=== PATIENT | female | born 1945 | race Caucasian/White ===

== ENCOUNTER 2016-05-01 08:44 | Emergency (ER) | payer OTHER ==
[~2016-05-01] VITALS: Ht 154.9 cm; Wt 50.0 kg
[~2016-05-01 08:44] MED LIST: ALLERGY RELIEF10 M1 PO; CARAFATE 1GM1 G PO; CELEXA 20MG20 MG/TAB PO; DIPHENHYDRAMINE25 MG PO; ELAVIL100 MG PO; FLONASE NASAL S16 GM NS; FLONASE0.05 MG/AC NS; FLOVENT 220MCG7.9 GM IH; FLOVENT DI250 MCG/Ac IH; IBU800 M1 PO; MAXZIDE-25 (1 UDTAB PO; METFORMIN500 MG PO; MULTIPLE VITAMI1 CAP PO; NEURONTIN100 MG/CAP PO; NYSTATIN AND TR1 CRE TP; PANTOPRAZOLE40 MG PO; PLAQUENIL 200M200 MG PO; PLAQUENIL PO; RANITIDINE300 MG PO; TYLENOL 325MG325 MG PO; [UNRECOGNIZED DRUG - OTHER] PO
[2016-05-01 08:47] VITALS: BP 160/87; TEMP 97.5
[2016-05-01 10:00] LABS: PH 5 (5-8); SQUAMOUS EPITHELIAL None Seen /hpf; URINE APPEARANCE Cloudy; URINE BACTERIA Rare /hpf; URINE BILIRUBIN Negative (NEGATIVE); URINE BLOOD 3+ (NEGATIVE); URINE COLOR Yellow; URINE GLUCOSE Negative (NEGATIVE); URINE KETONE Negative (NEGATIVE); URINE RBC >50 /hpf; URINE UROBILINOGEN Negative (NEGATIVE); URINE WBC >50 /hpf
[2016-05-01] MEDS ORDERED: CIPRO 250MG TA250 MG PO (10:12)
[2016-05-01] MEDS ORDERED: PYRIDIUM 100MG100 MG PO (10:12)
[2016-05-01 10:15] VITALS: PULSE 81
== END 2016-05-01 10:15 | disposition home or self-care (01) ==
LOC: COL.ER 08:44
PROVIDERS: Physician Assistant
DX: N39.0 Urinary tract infection, site not specified (principal); B96.20 Unspecified Escherichia coli [E. coli] as the cause of diseases classified elsewhere; M32.9 Systemic lupus erythematosus, unspecified; R31.0 Gross hematuria

== ENCOUNTER 2018-04-11 12:57 | Emergency (ER) | payer OTHER ==
[~2018-04-11] VITALS: Ht 154.9 cm; Wt 52.3 kg
[~2018-04-11 12:57] MED LIST changes: +CIPRO 250MG TA250 MG PO; +PYRIDIUM 100MG100 MG PO
[2018-04-11 13:00] VITALS: BP 149/80; TEMP 98.1
[2018-04-11 13:43] LABS: BASO # 0.1 (0.0-0.2); BASO % 1.1 % (0.0-2.0); EOS # 0.3 (0.0-0.7); GRAN # 2.7 (1.4-6.5); GRAN % 48.8 % (42.2-75.2); HEMATOCRIT 37.9 % (37.0-47.0); HEMOGLOBIN 12.7 g/dl (12.5-16.0); LYMPH # 2.1 (1.2-3.4); LYMPH % 37.6 % (20.0-51.0); MEAN CELL VOLUME 92 fl (80.0-100.0); MEAN CORPUSCULAR HEMOGLOBIN 31 pg (27.0-31.0); MEAN CORPUSCULAR HGB CONC 34 g/dl (33.0-37.0); MEAN PLATELET VOLUME 10.2 fl (7.4-10.4); MONO # 0.4 (0.1-0.6); MONO % 7.3 % (1.7-9.3); PLATELET COUNT 196 K/mm3 (130-400); RED BLOOD COUNT 4.12 M/mm3 (4.10-5.30); REDCELL DISTRIBUTION WIDTH-CV 13.6 % (11.5-14.5)
[2018-04-11 13:56] LABS: COLLECTION METHOD CLEAN CATCH
[2018-04-11 13:59] LABS: ALBUMIN 3.5 gm/dL (3.5-5.0); BILIRUBIN,TOTAL 0.4 mg/dL (0.0-1.0); C-REACTIVE PROTEIN 1.8 mg/dL (0.0-0.9); CALCIUM 9.1 mg/dL (8.4-10.2); CREATININE, serum 0.61 mg/dL (0.52-1.25); POTASSIUM 3.1 mmol/L (3.4-5.0); TOTAL PROTEIN 6.6 gm/dL (6.4-8.2)
[2018-04-11 14:04] LABS: PH 8 (5-8); SQUAMOUS EPITHELIAL None Seen /hpf; URINE APPEARANCE Clear; URINE BACTERIA None Seen /hpf; URINE BILIRUBIN Negative (NEGATIVE); URINE BLOOD Negative (NEGATIVE); URINE COLOR Yellow; URINE GLUCOSE Negative (NEGATIVE); URINE KETONE Negative (NEGATIVE); URINE LEUKOCYTE ESTERASE Trace (NEGATIVE); URINE NITRATE Negative (NEGATIVE); URINE PROTEIN(semi-quant) Negative (NEGATIVE); URINE RBC 0-2 /hpf; URINE UROBILINOGEN Negative (NEGATIVE)
[2018-04-11] MEDS ORDERED: CEFTIN 250250 MG/TAB PO (14:31)
[2018-04-11] MEDS ORDERED: NORCO 325 MG-7.1 TAB PO (14:31)
[2018-04-11 14:55] VITALS: PULSE 80
== END 2018-04-11 14:55 | disposition home or self-care (01) ==
LOC: COL.ER 12:57
PROVIDERS: Physician Assistant
DX: R10.9 Unspecified abdominal pain (principal); I10 Essential (primary) hypertension; J45.909 Unspecified asthma, uncomplicated; F17.210 Nicotine dependence, cigarettes, uncomplicated; Z90.49 Acquired absence of other specified parts of digestive tract; Z90.710 Acquired absence of both cervix and uterus
CPT/HCPCS: J7030

== ENCOUNTER 2019-03-07 05:54 | Emergency (ER) | payer MEDICARE, MEDICAID ==
[~2019-03-07] VITALS: Ht 154.9 cm; Wt 50.0 kg
[~2019-03-07 05:54] MED LIST changes: +CEFTIN 250250 MG/TAB PO; +NORCO 325 MG-7.1 TAB PO
[2019-03-07 05:58] VITALS: BP 157/73
[2019-03-07 07:44] LABS: BASO # 0.1 (0.0-0.2); BASO % 1.4 % (0.0-2.0); EOS # 0.8 (0.0-0.7); EOS % 14.4 % (0-4.0); GRAN # 2.2 (1.4-6.5); GRAN % 37.6 % (42.2-75.2); HEMATOCRIT 37.8 % (37.0-47.0); HEMOGLOBIN 12.4 g/dl (12.5-16.0); LYMPH # 2.2 (1.2-3.4); LYMPH % 37.2 % (20.0-51.0); MEAN CELL VOLUME 90 fl (80.0-100.0); MEAN CORPUSCULAR HEMOGLOBIN 30 pg (27.0-31.0); MEAN CORPUSCULAR HGB CONC 33 g/dl (33.0-37.0); MEAN PLATELET VOLUME 10.1 fl (7.4-10.4); MONO # 0.5 (0.1-0.6); MONO % 9.1 % (1.7-9.3); PLATELET COUNT 176 K/mm3 (130-400); REDCELL DISTRIBUTION WIDTH-CV 13.8 % (11.5-14.5)
[2019-03-07 07:53] LABS: ALBUMIN 3.8 gm/dL (3.5-5.0); BILIRUBIN,TOTAL 0.2 mg/dL (0.0-1.0); CALCIUM 9.1 mg/dL (8.4-10.2); CREATININE, serum 0.55 (0.52-1.25); POTASSIUM 3.3 mmol/L (3.4-5.0); TOTAL PROTEIN 7.3 gm/dL (6.4-8.2)
[2019-03-07 10:35] VITALS: PULSE 82; TEMP 97.5
== END 2019-03-07 10:35 | disposition home or self-care (01) ==
LOC: COL.ER 05:54
PROVIDERS: Emergency Medicine
DX: R51 Headache (principal); J45.909 Unspecified asthma, uncomplicated; M79.7 Fibromyalgia; F17.210 Nicotine dependence, cigarettes, uncomplicated; Z90.89 Acquired absence of other organs; Z79.51 Long term (current) use of inhaled steroids
CPT/HCPCS: J3010; Q9967

== ENCOUNTER → 2019-04-06 | Outpatient (CLI) | payer MEDICARE, MEDICAID | LOC: COL.VAS 12:45 | DX: J44.9 Chronic obstructive pulmonary disease, unspecified (principal); I08.0 Rheumatic disorders of both mitral and aortic valves ==

== ENCOUNTER 2019-06-02 10:51 | Emergency (ER) | payer MEDICARE, MEDICAID ==
[~2019-06-02] VITALS: Ht 154.9 cm; Wt 45.5 kg
[2019-06-02 11:01] VITALS: BP 157/72; TEMP 97.3
[2019-06-02 11:40] VITALS: PULSE 81
== END 2019-06-02 11:40 | disposition home or self-care (01) ==
LOC: COL.ER 10:51
DX: G89.29 Other chronic pain (principal); Z91.14 Patient's other noncompliance with medication regimen

== ENCOUNTER → 2019-06-02 | Outpatient (CLI) | payer MEDICARE, MEDICAID ==
[~2019-06-02] MED LIST changes: +ANTIVERT 25MG25 MG PO; +BREO ELLIPTA 21 EACH IH; +CALCIUM 600MG+D1 TAB PO; +COLESTID 1GM1 G PO; +DOXYCYCLINE 10100 MG PO; +FLONASEALLERGY NS; +HCTZ 25MG TAB25 MG PO; +INCRUSE EL62.5 MCG/A IH; +LEXAPRO20 MG PO; +LOMOTIL 0.025 M1 TAB PO; +MAG-OX 400400 MG/TAB PO; +MICRO-K EXTENCA8 MEQ PO; +MORPHINE 1515 MG/TAB PO; +PROAIR HFA0.09 MG/AC IH; +PROTONIX 40MG T40 MG PO; +SINGULAIR 110 MG/TAB PO; +TESSALON P100 MG/CAP PO; +XOPENEX 1.1.25 MG/3 IH
== END ==
LOC: COL.RAD 09:20
DX: Z01.812 Encounter for preprocedural laboratory examination (principal); K86.89 Other specified diseases of pancreas; N28.1 Cyst of kidney, acquired
CPT/HCPCS: Q9967

== ENCOUNTER → 2019-06-16 | Outpatient (CLI) | payer MEDICARE, MEDICAID | LOC: COL.RAD 11:58 | DX: K86.89 Other specified diseases of pancreas (principal) | CPT/HCPCS: A9585 ==

== ENCOUNTER → 2019-10-09 | Outpatient (CLI) | payer MEDICARE, MEDICAID | LOC: COL.RAD 13:45 | DX: Z01.812 Encounter for preprocedural laboratory examination (principal); K86.89 Other specified diseases of pancreas; I31.3 Pericardial effusion (noninflammatory); J90 Pleural effusion, not elsewhere classified; R16.1 Splenomegaly, not elsewhere classified | CPT/HCPCS: Q9967 ==

== ENCOUNTER → 2019-12-11 | Outpatient (CLI) | payer MEDICARE, MEDICAID | LOC: COL.RAD 14:56 | DX: T14.8XXA Other injury of unspecified body region, initial encounter (principal) ==

== ENCOUNTER → 2020-03-17 | Outpatient (CLI) | payer MEDICARE, MEDICAID | LOC: COL.VAS 13:05 | DX: I27.20 Pulmonary hypertension, unspecified (principal); I35.1 Nonrheumatic aortic (valve) insufficiency ==

== ENCOUNTER 2020-06-02 08:00 | Outpatient (CLI) | payer MEDICARE, MEDICAID ==
[~2020-06-02] VITALS: Ht 155 cm; Wt 49.0 kg
[2020-06-02 08:33] LABS: HEMATOCRIT 43.7 % (37.0-47.0); MEAN CELL VOLUME 87 fl (80.0-100.0); MEAN CORPUSCULAR HEMOGLOBIN 30 pg (27.0-31.0); MEAN CORPUSCULAR HGB CONC 34 g/dl (33.0-37.0); MEAN PLATELET VOLUME 9.5 fl (7.4-10.4); PLATELET COUNT 161 K/mm3 (130-400); RED BLOOD COUNT 5.05 M/mm3 (4.10-5.30); REDCELL DISTRIBUTION WIDTH-CV 13.2 % (11.5-14.5)
[2020-06-02 08:34] VITALS: BP 133/74; PULSE 91; TEMP 98.2
[2020-06-02 08:41] LABS: INR 1.1 (0.8-3.0); PROTHROMBIN TIME 12.3 SECONDS (9.7-12.8)
[2020-06-02 08:42] LABS: CALCIUM 9.7 mg/dL (8.4-10.2); CREATININE, serum 0.56 (0.52-1.25); POTASSIUM 3.3 mmol/L (3.4-5.0)
[2020-06-02] MEDS ORDERED: NORVASC 5MG5 MG/TAB PO (08:49)
[2020-06-02] MEDS ORDERED: SEROQUEL50 MG PO (08:49)
[2020-06-02] MEDS ORDERED: BREO ELLIPTA 21 EACH IH (08:52)
[2020-06-02] MEDS ORDERED: INCRUSE EL62.5 MCG/A IH (08:53)
[2020-06-02] MEDS ORDERED: BENTYL 10MG10 MG/CAP PO (08:54)
[2020-06-02] MEDS ORDERED: ONE-A-DAY ESSE1 EACH PO (08:55)
[2020-06-02] MEDS ORDERED: VITAMIN B COMPL1 SGL PO (08:55)
[2020-06-02] MEDS ORDERED: VITAMIN C500 MG PO (08:55)
[2020-06-02 09:45] VITALS: BP 123/78; PULSE 84
[2020-06-02 10:00] VITALS: BP 146/78; PULSE 75
[2020-06-02 10:15] VITALS: BP 151/78; PULSE 90
[2020-06-02 10:30] VITALS: BP 152/74; PULSE 78
[2020-06-02] MEDS ORDERED: ASPIRIN E.C. 8181 MG PO (10:44)
[2020-06-02 10:52] VITALS: BP 134/75; PULSE 82
--- NOTE | 2020-06-02 11:08 | NUR ---
Pt assisted out by wheelchair to sister's car with meds and personal belongings. She expressed understanding to DC instructions. Tolerated PO well. She was able to ambulate in room with cane prior to discharge. INT was DC'd with catheter intact, and bleeding controlled at site.
== END 2020-06-02 11:14 | disposition home or self-care (01) ==
LOC: COL.RAD 08:00
PROVIDERS: Internal Medicine Adult Congenital Heart Disease
DX: I08.3 Combined rheumatic disorders of mitral, aortic and tricuspid valves (principal); I70.0 Atherosclerosis of aorta
CPT/HCPCS: J2704

== ENCOUNTER → 2020-06-06 | Outpatient (CLI) | payer OTHER ==
[~2020-06-06] MED LIST changes: +ASPIRIN E.C. 8181 MG PO; +BENTYL 10MG10 MG/CAP PO; +NORVASC 5MG5 MG/TAB PO; +ONE-A-DAY ESSE1 EACH PO; +SEROQUEL50 MG PO; +VITAMIN B COMPL1 SGL PO; +VITAMIN C500 MG PO
== END ==
LOC: COL.RAD 12:11
DX: J32.9 Chronic sinusitis, unspecified (principal); Z98.890 Other specified postprocedural states

== ENCOUNTER 2020-06-19 11:01 | Inpatient (IN) | payer MEDICARE, MEDICAID ==
[~2020-06-19] VITALS: Ht 154.9 cm; Wt 50.0 kg
[2020-06-19 11:29] LABS: BASO # 0.1 (0.0-0.2); BASO % 1.4 % (0.0-2.0); EOS % 11.2 % (0-4.0); GRAN # 3.5 (1.4-6.5); GRAN % 40.8 % (42.2-75.2); HEMATOCRIT 41.3 % (37.0-47.0); HEMOGLOBIN 14.1 g/dl (12.5-16.0); LYMPH # 3.5 (1.2-3.4); LYMPH % 40.7 % (20.0-51.0); MEAN CELL VOLUME 90 fl (80.0-100.0); MEAN CORPUSCULAR HEMOGLOBIN 31 pg (27.0-31.0); MEAN CORPUSCULAR HGB CONC 34 g/dl (33.0-37.0); MEAN PLATELET VOLUME 10.1 fl (7.4-10.4); MONO # 0.5 (0.1-0.6); MONO % 5.8 % (1.7-9.3); PLATELET COUNT 148 K/mm3 (130-400); REDCELL DISTRIBUTION WIDTH-CV 13.3 % (11.5-14.5)
[2020-06-19 11:32] LABS: ALANINE AMINOTRANSFERASE 20 U/L (4-34); ALBUMIN 4.3 gm/dL (3.5-5.0); ALKALINE PHOSPHATASE 104 U/L (50-136); ANION GAP 7 mmol/L (7-16); AST,SGOT 34 U/L (15-37); BILIRUBIN,TOTAL 0.7 mg/dL (0.0-1.0); BLOOD UREA NITROGEN 9 mg/dL (7-17); CALCIUM 9.5 mg/dL (8.4-10.2); CARBON DIOXIDE 28 mmol/L (22-30); CHLORIDE 105 mmol/L (98-107); GLUCOSE 128 mg/dL (74-106); POTASSIUM 3.3 mmol/L (3.4-5.0); SODIUM 139 mmol/L (137-145); TOTAL PROTEIN 8.4 gm/dL (6.4-8.2)
[2020-06-19] MEDS ORDERED: CELEXA40 MG PO (11:40)
[2020-06-19] MEDS ORDERED: CLEOCIN HCL300 MG PO (11:41)
[2020-06-19 11:44] LABS: TROPONIN-I < 0.012 ng/mL (0.000-0.035)
--- NOTE | 2020-06-19 16:35 | NUR ---
PT UP TO MEDICAL FLOOR, REPORT RCVD FROM [facility].
[2020-06-19 17:06] LABS: ARTERIAL BLD GAS O2 SATURATION 96.5 % (92-100); ARTERIAL BLD GAS TCO2 CT 28.2; ARTERIAL BLOOD GAS BASE EXCESS 2.5 (-2-2); ARTERIAL BLOOD GAS HCO3 26.9 meq/L (22-26); ARTERIAL BLOOD GAS PCO2 41.1 mmHg (35-45); ARTERIAL BLOOD GAS PO2 84.7 mmHg (80-100); ARTERIAL BLOOD GAS pH 7.43 (7.35-7.45)
[2020-06-19 17:11] VITALS: BP 125/62; PULSE 92; TEMP 98.4
--- NOTE | 2020-06-19 17:28 | NUR ---
CALLED BY MED/FOLDER AND NOTCHER FOR ABG ORDERED IN ER AT 1530. ER RT NEVER NOTIFIED
[2020-06-19] MEDS ORDERED: REMERON 15M15 MG/TA1 PO (18:39)
[2020-06-19 19:08] VITALS: BP 150/78; PULSE 111; TEMP 97.5
--- NOTE | 2020-06-19 19:50 | NUR ---
REPORT GIVEN TO ALLISON OCAMPO. PT HAS HAD UNEVENTFUL EVENING ON THE MEDICAL FLOOR. NO OTHER CONCERNS.
--- NOTE | 2020-06-19 20:13 | NUR ---
Patient laying in bed and watching TV upon enter the room. Patient alert and oriented. Patient denies any chest pain, SOB/dyspnea, N/V, dizziness, diarrhea at this time. Patient currently on 3L via NC. Breathing even and unlabored. No s/s of respiratory distress noted. All scheduled meds given per JUN. Left AC IV site has no s/s of complications. Call light within reach. Patient denies any needs at this time. Will continue to monitor.
[2020-06-20] VITALS (7 sets, daily range): BP systolic 114–132; BP diastolic 51–68; PULSE 89–113; TEMP 97.6–98.4
--- NOTE | 2020-06-20 04:42 | NUR ---
Patient has been awake all night. Patient requested sleeping meds. Patient reports that she is taking Melatonin 30mg at home for sleeping. Called hospitalist XU Mukherjee for sleeping med. Order received to give 12 mg of Melatonin. PRN Melatonin give at 04:28 am. Call light within reach. Patient de nies further needs at this time.
--- NOTE | 2020-06-20 06:23 | NUR ---
PRN Morphine given at 06:13 am for back pain 4-5 out of 10. Call light within reach. Will give report to day shift nurse.
[2020-06-20 06:54] LABS: CALCIUM 9.8 mg/dL (8.4-10.2); CREATININE, serum 0.55 (0.52-1.25)
--- NOTE | 2020-06-20 07:00 | NUR ---
Report received from ALLISON Brothers. Pt in bed resting w ith [address], denies needs, will continue to monitor.
--- NOTE | 2020-06-20 08:30 | NUR ---
Assessment charted. Pt states she feels much better with pain all over sincetaking PRN Morphine PO but still has some chest pain that radiates up to neck. 02 at 4L NC. Haywood in room to see pt. INT to L A/C. Andrey proivded per pt request. Will continue to monitor.
[2020-06-20 08:36] LABS: INR 1.3 (0.8-3.0); PROTHROMBIN TIME 14.1 SECONDS (9.7-12.8)
--- NOTE | 2020-06-20 10:33 | NUR ---
Initial visit; Patient thanked Executive Kitchen Manager for offering prayer and God's blessings. Executive Kitchen Manager will follow up and keep patient in her prayers.
--- NOTE | 2020-06-20 14:49 | NUR ---
Plan to return home: SW met with patient and her sister in room. Patient reports that she resides locally. Patient reports that her PCP is Dr. Prajapati and she last had an appointment 2 weeks ago. Patient reports that she receives medications for [facility]. Patient reports that she uses a cane for mobility and has oygen at 3 liters from [facility]. Patinet reports that she does not have any other DME, Patient does not have any ADR but is interested in signing. Patient name EMR contact as Kaylin Roque . BLAYNE gave DPOA paperwork. Patient reports that she would like a casemanger to come back after 4 to do ppw. Educated patient if not later, in the morning. Patient has ppw and pen to fill out. Patient does not have any additional needs at this time. Will follow.
--- NOTE | 2020-06-20 18:01 | NUR ---
Pt up to bathroom for shower this afternoon, up to bathroom with diarrhea after constipation resolved, did refuse bowel regimen. Resting between disturbances, doing well, PRN pain meds given per request. Will give bedside shift report to nightshift nurse who will resume care.
--- NOTE | 2020-06-20 20:00 | NUR ---
Assessment complete. Patient ambulates independently to restroom to void; gait is steady. She complains of pain 7/10 "all over" but specifically as a headache; She states she takes morphine 2-3 times a day - Morphine order obtained for TID. She wears 4 liters 02 and appears dyspnic with activity. No edema is present, hand natural resources engineer are equal. Lung sounds are clear with very diminished bases. Bowels sounds are audible in all quadrants. LR at 30 ml/hr initiated into left a/c IV.
[2020-06-21] VITALS (13 sets, daily range): BP systolic 100–140; BP diastolic 47–84; PULSE 86–110; TEMP 97.3–98.4
--- NOTE | 2020-06-21 07:00 | NUR ---
bedside shift report received from ALLISON Tabares
[2020-06-21 07:04] LABS: HEMATOCRIT 38.6 % (37.0-47.0); HEMOGLOBIN 12.6 g/dl (12.5-16.0); MEAN CELL VOLUME 92 fl (80.0-100.0); MEAN CORPUSCULAR HEMOGLOBIN 30 pg (27.0-31.0); MEAN CORPUSCULAR HGB CONC 33 g/dl (33.0-37.0); MEAN PLATELET VOLUME 10.4 fl (7.4-10.4); PLATELET COUNT 138 K/mm3 (130-400); RED BLOOD COUNT 4.19 M/mm3 (4.10-5.30); REDCELL DISTRIBUTION WIDTH-CV 13.8 % (11.5-14.5)
[2020-06-21 07:18] LABS: CREATININE, serum 0.51 (0.52-1.25)
[2020-06-21 07:57] LABS: BAND 9 % (0-10); LYMPHOCYTE 5 % (20.0-51.0); NEUTROPHILS 84 % (42.0-75.2); PLATELET ESTIMATE NORMAL (NORMAL)
--- NOTE | 2020-06-21 08:00 | NUR ---
to endoscopy room for bronchoscopy,
--- NOTE | 2020-06-21 08:40 | NUR ---
returned per care from endoscopy clinic, ambulated from cart and into room and into bed, O2 on at 4L/NC, denies pain or needs,
--- NOTE | 2020-06-21 09:30 | NUR ---
Follow-up, Photo Engraver saw patient returning to her room and offered God's blessings this morning. Patient appeared happy to see Photo Engraver as well.
--- NOTE | 2020-06-21 09:53 | NUR ---
resting in bed, has had breakfast and tolerated well, denies needs at this time
--- NOTE | 2020-06-21 11:00 | NUR ---
ambulating in [facility] with physical therapy, Dr Chaves and care team was in to see patient,
--- NOTE | 2020-06-21 12:41 | NUR ---
c/o pain and medicated with MS 15mg po per her request
--- NOTE | 2020-06-21 13:30 | NUR ---
speech therapy in to work with patient
--- NOTE | 2020-06-21 14:58 | NUR ---
resting in bed
--- NOTE | 2020-06-21 15:58 | NUR ---
resting in bed, denies needs, student CAMPAIGN SPECIALIST in to assist with care
--- NOTE | 2020-06-21 16:45 | NUR ---
resting in bed and ready to rest
--- NOTE | 2020-06-21 17:01 | NUR ---
Curriculum Facilitator followed up with patient on DPOA- paperwork. SW assisted patient in completing the form in which patient wanted to designate her daughter, Chica. BLAYNE and Isiah, Quality Systems Engineer provided witness signature. SW provided original and copies to patient then placed copy on patient's chart.
--- NOTE | 2020-06-21 18:57 | NUR ---
bedside shift report given to ALLISON Brothers
--- NOTE | 2020-06-21 20:05 | NUR ---
Shift assessment completed and charted. Patient A/Ox4. Patient c/o pain to her feet and neck. Also c/o having bad headache. Patient denies SOB/dyspnea while at rest. Patient currently on 3L via AL. No acute respiratory distress noted at this time. PRN Morphine given for pain and headache. All scheduled meds given per JUN. Call light within reach. Patient denies any needs at this time.
[2020-06-22 20:00] VITALS: BP 139/66; PULSE 79; TEMP 98
[2020-06-23 00:21] VITALS: PULSE 75; TEMP 97.2
[2020-06-23 04:28] VITALS: PULSE 68; TEMP 97.2
[2020-06-23 07:08] LABS: BASO % 0.1 % (0.0-2.0); GRAN # 6.7 (1.4-6.5); GRAN % 82.6 % (42.2-75.2); HEMATOCRIT 41.1 % (37.0-47.0); HEMOGLOBIN 13.7 g/dl (12.5-16.0); LYMPH % 12.1 % (20.0-51.0); MEAN CELL VOLUME 91 fl (80.0-100.0); MEAN CORPUSCULAR HEMOGLOBIN 30 pg (27.0-31.0); MEAN CORPUSCULAR HGB CONC 33 g/dl (33.0-37.0); MEAN PLATELET VOLUME 10.6 fl (7.4-10.4); MONO # 0.4 (0.1-0.6); MONO % 4.3 % (1.7-9.3); PLATELET COUNT 143 K/mm3 (130-400); RED BLOOD COUNT 4.54 M/mm3 (4.10-5.30); REDCELL DISTRIBUTION WIDTH-CV 13.3 % (11.5-14.5)
[2020-06-23 07:26] LABS: CALCIUM 9.7 mg/dL (8.4-10.2); CREATININE, serum 0.59 (0.52-1.25); POTASSIUM 4.1 mmol/L (3.4-5.0)
[2020-06-23 08:28] VITALS: BP 138/70; PULSE 72; TEMP 98.4
[2020-06-23 08:41] VITALS: BP 121/57; PULSE 68
[2020-06-23] MEDS ORDERED: OMNICEF 300MG300 MG PO (08:56)
[2020-06-23] MEDS ORDERED: MUCINEX1200 MG PO (08:57)
--- NOTE | 2020-06-23 08:58 | NUR ---
(late entry 06/22) Upholstery Handler attended clinical rounds with the team. The patient is on oxygen at baseline. The discharge plan is to return home with her daughter when able.
[2020-06-23] MEDS ORDERED: FIRST-MOUTHWASH1 KIT PO (08:59)
[2020-06-23] MEDS ORDERED: PREDNISONE10 MG PO (09:01)
--- NOTE | 2020-06-23 10:29 | NUR ---
Agree with student nurses assessment of the patient. VSS O2 2L NC. Denies pain and discomfort. No further needs expressed from the patient. Call light within reach
--- NOTE | 2020-06-23 12:36 | NUR ---
Primary nurse was assisted with [phone] patient care by [employer] [facility] [facility] student Jocelyn Elena and [facility] [facility] instructor My Guerrero RN-BC.
[2020-06-23 14:55] LABS: CLOSTRIDIUM DIFF A/B NEG; CLOSTRIDIUM DIFF A/B INTERP No C.diff present
== END 2020-06-23 12:00 | disposition home or self-care (01) | DRG 194 ==
LOC: COL.ER 11:01 → MEDICAL 15:28
PROVIDERS: Internal Medicine Pulmonary Disease; Nurse Practitioner Primary Care; ADMIT Family Medicine
PROC: 0BCB8ZZ Extirpation of Matter from Left Lower Lobe Bronchus, Via Natural or Artificial Opening Endoscopic (ICD-10-PCS; 2020-06-21)
PROC: 0BC68ZZ Extirpation of Matter from Right Lower Lobe Bronchus, Via Natural or Artificial Opening Endoscopic (ICD-10-PCS; 2020-06-21)
PROC: 0DB28ZX Excision of Middle Esophagus, Via Natural or Artificial Opening Endoscopic, Diagnostic (ICD-10-PCS; 2020-06-21)
PROC: 0DB78ZX Excision of Stomach, Pylorus, Via Natural or Artificial Opening Endoscopic, Diagnostic (ICD-10-PCS; 2020-06-21)
PROC: 0BC18ZZ Extirpation of Matter from Trachea, Via Natural or Artificial Opening Endoscopic (ICD-10-PCS; principal; 2020-06-21 08:00)
DX: J18.9 Pneumonia, unspecified organism (principal); J96.11 Chronic respiratory failure with hypoxia; J44.0 Chronic obstructive pulmonary disease with (acute) lower respiratory infection; J44.1 Chronic obstructive pulmonary disease with (acute) exacerbation; K22.10 Ulcer of esophagus without bleeding; J98.19 Other pulmonary collapse; J98.11 Atelectasis; Z20.822 Contact with and (suspected) exposure to COVID-19; E87.6 Hypokalemia; I10 Essential (primary) hypertension; M34.9 Systemic sclerosis, unspecified; K22.8 Other specified diseases of esophagus; I27.20 Pulmonary hypertension, unspecified; I73.00 Raynaud's syndrome without gangrene; M32.9 Systemic lupus erythematosus, unspecified; M79.7 Fibromyalgia; M54.9 Dorsalgia, unspecified; G89.29 Other chronic pain; F31.9 Bipolar disorder, unspecified; K59.00 Constipation, unspecified; K21.00 Gastro-esophageal reflux disease with esophagitis, without bleeding; Z99.81 Dependence on supplemental oxygen; Z88.0 Allergy status to penicillin; Z88.1 Allergy status to other antibiotic agents; Z88.8 Allergy status to other drugs, medicaments and biological substances; Z90.411 Acquired partial absence of pancreas; Z90.49 Acquired absence of other specified parts of digestive tract; Z90.710 Acquired absence of both cervix and uterus; Z79.82 Long term (current) use of aspirin; Z87.891 Personal history of nicotine dependence
CPT/HCPCS: OP; 99222-AI; 99232-AI; 99239; J0456; J0692; J1650; J1885; J2270; J2704; J2920; J2930; J3010; J7050; J7120; J7512; Q9967

== ENCOUNTER → 2020-09-21 | Outpatient (CLI) | payer MEDICARE, MEDICAID ==
[~2020-09-21] MED LIST changes: +ALBUTEROL1.25 MG/3 IH; +CELEXA40 MG PO; +CLEOCIN HCL300 MG PO; +FIRST-MOUTHWASH1 KIT PO; +K-TAB20 PO; +LASIX 20MG TABL20 MG PO; +LIPITOR 40MG TA40 MG PO; +MEDROL 4MG DOSPA4 MG PO; +MONODOX100 PO; +MUCINEX1200 MG PO; +OMNICEF 300MG300 MG PO; +PREDNISONE10 MG PO; +PREDNISONE20 MG PO; +REMERON 15M15 MG/TA1 PO; +RT ADVAIR HFA 1112 G IH
[2020-09-21 08:52] LABS: ALBUMIN 4.2 gm/dL (3.5-5.0); BILIRUBIN,TOTAL 0.4 mg/dL (0.0-1.0); CALCIUM 9.3 mg/dL (8.4-10.2); CREATININE, serum 0.51 (0.52-1.25); POTASSIUM 3.5 mmol/L (3.4-5.0); TOTAL PROTEIN 7.9 gm/dL (6.4-8.2)
== END ==
LOC: COL.RAD 08:13
PROVIDERS: Surgery
DX: N28.1 Cyst of kidney, acquired (principal); Z90.411 Acquired partial absence of pancreas; Z90.710 Acquired absence of both cervix and uterus
CPT/HCPCS: Q9967

== ENCOUNTER 2020-12-25 19:48 | Emergency (ER) | payer MEDICARE, MEDICAID ==
[~2020-12-25] VITALS: Ht 154.9 cm; Wt 47.7 kg
[~2020-12-25 19:48] MED LIST changes: -ALBUTEROL1.25 MG/3 IH; -K-TAB20 PO; -LASIX 20MG TABL20 MG PO; -LIPITOR 40MG TA40 MG PO; -MEDROL 4MG DOSPA4 MG PO; -MONODOX100 PO; -PREDNISONE20 MG PO; -RT ADVAIR HFA 1112 G IH
[2020-12-25 20:00] VITALS: TEMP 97.7
[2020-12-25 20:22] LABS: HEMATOCRIT 35.8 % (37.0-47.0); HEMOGLOBIN 11.6 g/dl (12.5-16.0); MEAN CELL VOLUME 88 fl (80.0-100.0); MEAN CORPUSCULAR HEMOGLOBIN 29 pg (27.0-31.0); MEAN CORPUSCULAR HGB CONC 32 g/dl (33.0-37.0); MEAN PLATELET VOLUME 9.4 fl (7.4-10.4); PLATELET COUNT 166 K/mm3 (130-400); RED BLOOD COUNT 4.07 M/mm3 (4.10-5.30); REDCELL DISTRIBUTION WIDTH-CV 14.9 % (11.5-14.5)
[2020-12-25 20:36] LABS: ALANINE AMINOTRANSFERASE 339 U/L (4-34); ALKALINE PHOSPHATASE 253 U/L (50-136); ANION GAP 8 mmol/L (7-16); AST,SGOT 285 U/L (15-37); BILIRUBIN,TOTAL 0.3 mg/dL (0.0-1.0); BLOOD UREA NITROGEN 14 mg/dL (7-17); CALCIUM 9.4 mg/dL (8.4-10.2); CARBON DIOXIDE 28 mmol/L (22-30); CHLORIDE 103 mmol/L (98-107); CREATININE, serum 0.59 (0.52-1.25); GLUCOSE 162 mg/dL (74-106); POTASSIUM 3.4 mmol/L (3.4-5.0); SODIUM 140 mmol/L (137-145); TOTAL PROTEIN 9.2 gm/dL (6.4-8.2)
[2020-12-25 20:58] LABS: BAND 3 % (0-10); EOSINOPHIL 42 % (0-4); LYMPHOCYTE 14 % (20.0-51.0); MYELOCYTE 2 % (0-0); NEUTROPHILS 35 % (42.0-75.2)
[2020-12-25 20:59] LABS: PLATELET ESTIMATE NORMAL (NORMAL)
[2020-12-25 21:02] LABS: TROPONIN-I < 0.012 ng/mL (0.000-0.035)
[2020-12-25] MEDS ORDERED: LASIX 20MG TABL20 MG PO (21:41)
[2020-12-25] MEDS ORDERED: PREDNISONE20 MG PO (21:41)
[2020-12-25 22:32] VITALS: BP 144/70; PULSE 62
== END 2020-12-25 22:32 | disposition home or self-care (01) ==
LOC: COL.ER 19:48
PROVIDERS: Emergency Medicine
DX: J44.1 Chronic obstructive pulmonary disease with (acute) exacerbation (principal); J81.1 Chronic pulmonary edema; Z20.822 Contact with and (suspected) exposure to COVID-19; Z87.891 Personal history of nicotine dependence; Z79.52 Long term (current) use of systemic steroids; Z79.899 Other long term (current) drug therapy
CPT/HCPCS: J1940; J2930

== ENCOUNTER 2021-02-02 18:24 | Inpatient (IN) | payer MEDICARE, MEDICAID ==
[~2021-02-02] VITALS: Ht 154.9 cm; Wt 52.2 kg
[~2021-02-02 18:24] MED LIST changes: +LASIX 20MG TABL20 MG PO; +PREDNISONE20 MG PO
[2021-02-02 18:54] LABS: BASO # 0.1 K/mm3 (0.0-0.2); BASO % 0.8 % (0.0-2.0); EOS # 0.7 K/mm3 (0.0-0.7); EOS % 7.3 % (0-4.0); GRAN # 6.1 K/mm3 (1.4-6.5); GRAN % 68.4 % (42.2-75.2); HEMOGLOBIN 12.3 g/dl (12.5-16.0); LYMPH # 1.5 K/mm3 (1.2-3.4); LYMPH % 16.9 % (20.0-51.0); MEAN CELL VOLUME 85 fl (80.0-100.0); MEAN CORPUSCULAR HEMOGLOBIN 29 pg (27.0-31.0); MEAN CORPUSCULAR HGB CONC 33 g/dl (33.0-37.0); MEAN PLATELET VOLUME 9.1 fl (7.4-10.4); MONO # 0.5 K/mm3 (0.1-0.6); MONO % 6.1 % (1.7-9.3); PLATELET COUNT 219 K/mm3 (130-400); RED BLOOD COUNT 4.32 M/mm3 (4.10-5.30); REDCELL DISTRIBUTION WIDTH-CV 15.1 % (11.5-14.5)
[2021-02-02 18:55] LABS: HEMATOCRIT 36.9 % (37.0-47.0)
[2021-02-02 19:19] LABS: ALANINE AMINOTRANSFERASE 15 U/L (0-55); ALBUMIN 3.3 gm/dL (3.4-4.8); ALKALINE PHOSPHATASE 105 U/L (0-750); ANION GAP 13 mmol/L (7-16); AST,SGOT 20 U/L (5-34); BILIRUBIN,TOTAL 0.2 mg/dL (0.2-1.2); BLOOD UREA NITROGEN 5 mg/dL (10-20); CALCIUM 9.4 mg/dL (8.4-10.2); CARBON DIOXIDE 25 mmol/L (23-31); CHLORIDE 102 mmol/L (98-107); CREATININE, serum 0.75 mg/dL (0.57-1.11); GLUCOSE 229 mg/dL (70-99); SODIUM 140 mmol/L (136-145)
[2021-02-02 19:25] LABS: POTASSIUM 2.5 mmol/L (3.5-4.5)
[2021-02-02 19:27] LABS: TROPONIN-I < 0.010 ng/mL (0.00-0.033)
[2021-02-02] MEDS ORDERED: LASIX 20MG TABL20 MG PO (20:24)
[2021-02-02] MEDS ORDERED: CARAFATE 1GM1 G PO (20:24)
[2021-02-02] MEDS ORDERED: PROAIR HFA0.09 MG/AC IH (20:24)
[2021-02-02] MEDS ORDERED: MORPHINE 1515 MG/TAB PO (20:25)
[2021-02-02] MEDS ORDERED: SINGULAIR 110 MG/TAB PO (20:25)
[2021-02-02] MEDS ORDERED: RT ADVAIR HFA 1112 G IH (20:25)
[2021-02-02] MEDS ORDERED: SEROQUEL50 MG PO ×2 (20:26→20:29)
[2021-02-02] MEDS ORDERED: CELEXA40 MG PO (20:26)
[2021-02-02] MEDS ORDERED: ALBUTEROL1.25 MG/3 IH (20:30)
[2021-02-02] MEDS ORDERED: NORVASC 5MG5 MG/TAB PO (20:30)
[2021-02-02] MEDS ORDERED: PROTONIX 40MG T40 MG PO (20:31)
[2021-02-02] MEDS ORDERED: ANTIVERT 25MG25 MG PO (20:31)
[2021-02-02] MEDS ORDERED: LOMOTIL 0.025 M1 TAB PO (20:32)
--- NOTE | 2021-02-02 22:00 | NUR ---
Admitted to medical floor from ER- DX-COPD exac, RUL pneumonia, pleasant, alert/oriented,o2 at 3L/nc, states neck/joint/all over pain is 8/10,,takes Morphine at home for lupus/fibromyalgia,,,will give a dose now as ordered. IV fluids of NS w/40KCL at 200cc/hr for this bag only,, Up to bathroom with assist- will send down urine and the RVP swab to lab as ordered
[2021-02-02 22:02] VITALS: BP 128/59; PULSE 113; TEMP 97.7
[2021-02-02 23:22] VITALS: BP 102/47; PULSE 100; TEMP 98
[2021-02-03 03:44] VITALS: BP 100/51; PULSE 92; TEMP 97.6
--- NOTE | 2021-02-03 04:00 | NUR ---
States has a headache-- all over head and neck 12/06,, states the only pain med that works is the Morphine-- only ordered BID,, Allie BENTLEY called, states no Morphine at this time due to lower B/P, she will put in an order for Tramadol.
--- NOTE | 2021-02-03 05:14 | NUR ---
Went in to give the Tramadol that Allie BENTLEY ordered, pt was sound asleep, Quiet night, o2 at 3L/nc
[2021-02-03 06:38] LABS: BASO % 0.4 % (0.0-2.0); EOS % 0.4 % (0-4.0); GRAN # 3.9 K/mm3 (1.4-6.5); HEMOGLOBIN 10.7 g/dl (12.5-16.0); LYMPH # 0.7 K/mm3 (1.2-3.4); LYMPH % 13.9 % (20.0-51.0); MEAN CELL VOLUME 87 fl (80.0-100.0); MEAN CORPUSCULAR HEMOGLOBIN 28 pg (27.0-31.0); MEAN CORPUSCULAR HGB CONC 32 g/dl (33.0-37.0); MEAN PLATELET VOLUME 9.4 fl (7.4-10.4); MONO # 0.1 K/mm3 (0.1-0.6); MONO % 1.7 % (1.7-9.3); PLATELET COUNT 173 K/mm3 (130-400); RED BLOOD COUNT 3.85 M/mm3 (4.10-5.30); REDCELL DISTRIBUTION WIDTH-CV 15.4 % (11.5-14.5)
[2021-02-03 06:49] LABS: HEMATOCRIT 33.3 % (37.0-47.0)
[2021-02-03 06:59] LABS: CALCIUM 8.8 mg/dL (8.4-10.2); CREATININE, serum 0.66 mg/dL (0.57-1.11); POTASSIUM 4.2 mmol/L (3.5-4.5)
[2021-02-03 08:02] VITALS: BP 131/57; PULSE 115; TEMP 98
--- NOTE | 2021-02-03 09:50 | NUR ---
Initial visit; Patient thanked Visualizer for offering prayer and God's blessings along with Visualizer placing her on Visualizer's prayer list. Visualizer will follow up while patient is at our hospital.
[2021-02-03 11:43] VITALS: BP 115/48; PULSE 118; TEMP 98.3
--- NOTE | 2021-02-03 13:05 | NUR ---
case worker met with patient to discuss discharge plan. Patient lives with her daughter Edie ([phone]) in [place]. Patient reports that her daughter assists her with almost all of her ADL's and that she uses a cane to assist with mobiity, but will use her walker if she is really "wornout". Patient utilizes O2 at home, however she is unsure of who she gets it from. PCp is Dr. Toledo and utilizes [facility] for perscriptions with no cost difficulties. Patient's DPOA-HC is Edie and the hospital has a copy of it. Patient at this moment is planning on return home, and is open to services. Phone call made to physician Jennifer for PT/OT orders. *Discharge plan: Home- Pending PT/OT recs
--- NOTE | 2021-02-03 14:07 | NUR ---
Primary nurse was assisted with [phone] patient care by [employer] [facility] ADN student Elidia Stovall and [facility] [employer] [facility] instructor yM Guerrero MSN, RN
[2021-02-03 16:10] VITALS: BP 111/68; PULSE 131; TEMP 98.3
[2021-02-03 21:02] VITALS: BP 118/58; PULSE 115; TEMP 98.3
--- NOTE | 2021-02-03 22:32 | NUR ---
Patient assessed. Denies pain and discomfort. Peripheral INT to left AC and left forearm. Denies SOB and dyspnea. On oyxgen at 3 L/min via NC. Had received Morphine on previous shift. Denies SOB and dyspnea. LS CTA in upper lobes, diminished in lower. Voices no questions, needs, or concerns at this time. Resting in bed with call light within reach.
[2021-02-04 05:05] VITALS: BP 119/67; PULSE 88; TEMP 97.9
--- NOTE | 2021-02-04 05:39 | NUR ---
Patient had complained of pain and requested pain medication. Patient's pain medication had been changed from BID to TID yesterday, but due to timing, only recieved medication twice. Call placed to [facility] Kelley and fran to give a one time dose, and given at that time, between midnight and 0100. This morning patient complained of not being able to sleep, and requested medication to help her sleep. Explained to patient that due to the time, we can ask the hospitalist today and see if we can get medication to help her sleep tonight, and stated that she was ok with this. Voices no further questions, needs, or concerns at this time. Resting in bed with call light within reach.
--- NOTE | 2021-02-04 05:44 | NUR ---
Patient was given PRN cough medicine once this shift.
--- NOTE | 2021-02-04 07:00 | NUR ---
Report with ALLISON Devlin. Pt sitting up in bed, awake and alert, requesting paper and pencil but denies current and further needs at this time. O2 at 3 L/min via NC. Call light in reach.
[2021-02-04 07:06] LABS: BASO % 0.1 % (0.0-2.0); EOS % 0.1 % (0-4.0); GRAN # 12.3 K/mm3 (1.4-6.5); GRAN % 89.6 % (42.2-75.2); HEMOGLOBIN 10.5 g/dl (12.5-16.0); LYMPH % 7.5 % (20.0-51.0); MEAN CELL VOLUME 89 fl (80.0-100.0); MEAN CORPUSCULAR HEMOGLOBIN 28 pg (27.0-31.0); MEAN CORPUSCULAR HGB CONC 32 g/dl (33.0-37.0); MEAN PLATELET VOLUME 9.6 fl (7.4-10.4); MONO # 0.2 K/mm3 (0.1-0.6); MONO % 1.5 % (1.7-9.3); PLATELET COUNT 200 K/mm3 (130-400); REDCELL DISTRIBUTION WIDTH-CV 15.9 % (11.5-14.5)
[2021-02-04 07:09] LABS: HEMATOCRIT 32.8 % (37.0-47.0)
[2021-02-04 07:31] LABS: CALCIUM 10.3 mg/dL (8.4-10.2); CREATININE, serum 0.69 mg/dL (0.57-1.11); POTASSIUM 4.3 mmol/L (3.5-4.5)
--- NOTE | 2021-02-04 08:00 | NUR ---
Assessment complete. Pt resting in bed, A&O x 4, reports pain to head 4 out of 10. Occasional expiratory wheeze bilat. O2 provided at 3 L/min via NC. Saline lock IV's to left forearm and left AC without s/s of complications. No further needs reported. Call light in reach.
[2021-02-04 08:16] VITALS: BP 125/64; PULSE 101; TEMP 97.8
[2021-02-04 12:11] VITALS: BP 107/68; PULSE 97; TEMP 98.2
[2021-02-04 16:10] VITALS: BP 126/67; PULSE 97; TEMP 98.2
[2021-02-04 20:28] VITALS: BP 124/63; PULSE 99; TEMP 97.9
--- NOTE | 2021-02-04 21:40 | NUR ---
Patient complained of level 6 pain, and given her scheduled morphine per orders. Voices no further questions, needs, or concerns at this time. Resting in bed with call light within reach.
[2021-02-05 00:57] VITALS: BP 124/67; PULSE 94; TEMP 98
[2021-02-05 04:39] VITALS: BP 138/63; PULSE 76; TEMP 97.7
--- NOTE | 2021-02-05 06:05 | NUR ---
Patient has been resting in bed with call light within reach. Has voiced no questions, needs, or concerns at this time.
--- NOTE | 2021-02-05 07:00 | NUR ---
Report with ALLISON Devlin. Pt resting in bed with O2 at 3 L/min via NC. Pt denies needs at this time. Call light in reach.
[2021-02-05 07:34] VITALS: BP 123/65; PULSE 79; TEMP 97.8
[2021-02-05 07:44] LABS: HEMOGLOBIN 12.1 g/dl (12.5-16.0); MEAN CELL VOLUME 88 fl (80.0-100.0); MEAN CORPUSCULAR HEMOGLOBIN 29 pg (27.0-31.0); MEAN CORPUSCULAR HGB CONC 33 g/dl (33.0-37.0); MEAN PLATELET VOLUME 9.5 fl (7.4-10.4); PLATELET COUNT 200 K/mm3 (130-400); RED BLOOD COUNT 4.22 M/mm3 (4.10-5.30); REDCELL DISTRIBUTION WIDTH-CV 15.9 % (11.5-14.5)
[2021-02-05 07:53] LABS: CALCIUM 10.3 mg/dL (8.4-10.2); CREATININE, serum 0.69 mg/dL (0.57-1.11); POTASSIUM 4.3 mmol/L (3.5-4.5)
--- NOTE | 2021-02-05 09:00 | NUR ---
Assessment complete. Pt resting in bed, A&O x 4, reports pain to head/neck 4 out of 10 with sched pain medication being administered. Saline lock IV's to left hand and AC without s/s of complications. Pt asking about going home today, reports feeling ready. No further needs reported. Call light in reach.
[2021-02-05 09:48] LABS: ANISOCYTOSIS 1+; BAND 6 % (0-10); LYMPHOCYTE 15 % (20.0-51.0); NEUTROPHILS 75 % (42.0-75.2); PLATELET ESTIMATE NORMAL (NORMAL)
[2021-02-05] MEDS ORDERED: OMNICEF 300MG300 MG PO (10:46)
[2021-02-05] MEDS ORDERED: MONODOX100 PO (10:47)
[2021-02-05] MEDS ORDERED: MEDROL 4MG DOSPA4 MG PO (10:48)
[2021-02-05] MEDS ORDERED: K-TAB20 PO (10:49)
[2021-02-05 11:44] VITALS: BP 117/62; PULSE 84; TEMP 97.9
--- NOTE | 2021-02-05 13:36 | NUR ---
Discharge instructions reviewed with pt regarding new/changes in medication, follow-up labs/imaging and follow-up appointment. Questions invited and answered. Pt verbalizes understanding, discharged home, escorted out of facility via WC accompanied by MUSEUM DIRECTOR. Pt's friend providing ride home.
== END 2021-02-05 13:40 | disposition home or self-care (01) | DRG 871 ==
LOC: COL.ER 18:24 → MEDICAL 19:46
PROVIDERS: Emergency Medicine; Nurse Practitioner Family; Physician Assistant; Student in an Organized Health Care Education/Training Program; ADMIT Internal Medicine
DX: A41.9 Sepsis, unspecified organism (principal); J18.1 Lobar pneumonia, unspecified organism; J96.21 Acute and chronic respiratory failure with hypoxia; J44.1 Chronic obstructive pulmonary disease with (acute) exacerbation; I10 Essential (primary) hypertension; I27.20 Pulmonary hypertension, unspecified; E87.6 Hypokalemia; M32.9 Systemic lupus erythematosus, unspecified; I73.00 Raynaud's syndrome without gangrene; M79.7 Fibromyalgia; G89.29 Other chronic pain; M54.9 Dorsalgia, unspecified; K21.9 Gastro-esophageal reflux disease without esophagitis; D64.9 Anemia, unspecified; F31.9 Bipolar disorder, unspecified; E11.9 Type 2 diabetes mellitus without complications; Z87.891 Personal history of nicotine dependence; R65.20 Severe sepsis without septic shock; Z20.822 Contact with and (suspected) exposure to COVID-19
CPT/HCPCS: 99223-AI; 99233-AI; 99239; J0696; J1650; J1815; J2920; J2930; J3475; J3480; J7030

== ENCOUNTER 2021-02-24 20:10 | Observation (INO) | payer MEDICARE, MEDICAID ==
[~2021-02-24] VITALS: Ht 154.9 cm; Wt 47.0 kg
[~2021-02-24 20:10] MED LIST changes: +ALBUTEROL1.25 MG/3 IH; +K-TAB20 PO; +MEDROL 4MG DOSPA4 MG PO; +MONODOX100 PO; +RT ADVAIR HFA 1112 G IH
[2021-02-24 20:47] LABS: HEMATOCRIT 38.1 % (37.0-47.0); HEMOGLOBIN 12.7 g/dl (12.5-16.0); MEAN CELL VOLUME 86 fl (80.0-100.0); MEAN CORPUSCULAR HEMOGLOBIN 29 pg (27.0-31.0); MEAN CORPUSCULAR HGB CONC 33 g/dl (33.0-37.0); MEAN PLATELET VOLUME 9.6 fl (7.4-10.4); PLATELET COUNT 159 K/mm3 (130-400); RED BLOOD COUNT 4.43 M/mm3 (4.10-5.30); REDCELL DISTRIBUTION WIDTH-CV 15.4 % (11.5-14.5)
[2021-02-24 21:00] LABS: ALANINE AMINOTRANSFERASE 16 U/L (0-55); ALBUMIN 3.6 gm/dL (3.4-4.8); ALKALINE PHOSPHATASE 72 U/L (40-150); ANION GAP 13 mmol/L (7-16); AST,SGOT 18 U/L (5-34); BILIRUBIN,TOTAL 0.4 mg/dL (0.2-1.2); BLOOD UREA NITROGEN 11 mg/dL (10-20); CARBON DIOXIDE 20 mmol/L (23-31); CHLORIDE 105 mmol/L (98-107); CREATININE, serum 0.66 mg/dL (0.57-1.11); GLUCOSE 115 mg/dL (70-99); POTASSIUM 3.5 mmol/L (3.5-4.5); SODIUM 138 mmol/L (136-145); TOTAL PROTEIN 8.1 gm/dL (6.2-8.1)
[2021-02-24 21:09] LABS: TROPONIN-I < 0.010 ng/mL (0.00-0.033)
[2021-02-24 21:26] LABS: ARTERIAL BLD GAS TCO2 CT 24.1; ARTERIAL BLOOD GAS BASE EXCESS -0.9 (-2-2); ARTERIAL BLOOD GAS PCO2 35.6 mmHg (35-45); ARTERIAL BLOOD GAS PO2 91.4 mmHg (80-100); ARTERIAL BLOOD GAS pH 7.43 (7.35-7.45)
[2021-02-24 21:32] LABS: BAND 8 % (0-10); EOSINOPHIL 3 % (0-4); LYMPHOCYTE 15 % (20.0-51.0); NEUTROPHILS 71 % (42.0-75.2); PLATELET ESTIMATE NORMAL (NORMAL)
[2021-02-24 23:20] VITALS: BP 141/71; PULSE 112; TEMP 97.9
--- NOTE | 2021-02-24 23:30 | NUR ---
Admitted to room 315 via stretcher. Oriented to floor and policy. Admission assessment complete. A&Ox4. Denies nausea. Short of breath with activity and talking. O2@10L/Oxymask. Bilat insp wheeses not to all saenz. Med rec updated. Plan of care discussed for this shift to include meds/monitoring O2 sats and adjusting O2 as needed. Verbalizes understanding. Denies needs. Call light in reach/bed alarm on. Will monitor.
[2021-02-25] MEDS ORDERED: LIPITOR 40MG TA40 MG PO (00:46)
[2021-02-25] MEDS ORDERED: LASIX 20MG TABL20 MG PO (00:48)
[2021-02-25 00:57] LABS: COLLECTION METHOD CLEAN CATCH
[2021-02-25 01:08] LABS: MUCOUS Present /lpf; PH 5 (5-8); SQUAMOUS EPITHELIAL 0-2 /hpf; URINE APPEARANCE Clear; URINE BACTERIA None Seen /hpf; URINE BILIRUBIN Negative (NEGATIVE); URINE BLOOD Negative (NEGATIVE); URINE COLOR Yellow; URINE GLUCOSE Negative (NEGATIVE); URINE KETONE 1+ (NEGATIVE); URINE LEUKOCYTE ESTERASE Trace (NEGATIVE); URINE NITRATE Negative (NEGATIVE); URINE PROTEIN(semi-quant) 2+ (NEGATIVE); URINE RBC 0-2 /hpf; URINE UROBILINOGEN Negative (NEGATIVE)
[2021-02-25 03:14] VITALS: BP 104/90; PULSE 91; TEMP 97.8
--- NOTE | 2021-02-25 05:59 | NUR ---
O2 saturation 98% on 8L/oxymask. O2 decreased to 7L/oxymask. O2 saturation maintained at 96%.
--- NOTE | 2021-02-25 07:17 | NUR ---
REPORT RECIEVED FROM ALLISON TIM. PT ASLEEP IN BED. BREATHING REG/UNLABORED. CALL REN IN REACH.
[2021-02-25 07:38] VITALS: BP 129/69; PULSE 90; TEMP 98.3
[2021-02-25 09:19] LABS: BASO % 0.6 % (0.0-2.0); EOS % 1.1 % (0-4.0); GRAN # 2.7 K/mm3 (1.4-6.5); GRAN % 78.8 % (42.2-75.2); HEMOGLOBIN 11.9 g/dl (12.5-16.0); LYMPH # 0.6 K/mm3 (1.2-3.4); LYMPH % 18.1 % (20.0-51.0); MEAN CELL VOLUME 87 fl (80.0-100.0); MEAN CORPUSCULAR HEMOGLOBIN 29 pg (27.0-31.0); MEAN CORPUSCULAR HGB CONC 33 g/dl (33.0-37.0); MEAN PLATELET VOLUME 10.1 fl (7.4-10.4); MONO % 1.1 % (1.7-9.3); PLATELET COUNT 144 K/mm3 (130-400); RED BLOOD COUNT 4.15 M/mm3 (4.10-5.30); REDCELL DISTRIBUTION WIDTH-CV 15.4 % (11.5-14.5)
[2021-02-25 09:30] LABS: HEMATOCRIT 36.2 % (37.0-47.0)
[2021-02-25 09:55] LABS: CALCIUM 9.7 mg/dL (8.4-10.2); CREATININE, serum 0.74 mg/dL (0.57-1.11); POTASSIUM 4.8 mmol/L (3.5-4.5)
[2021-02-25 12:14] VITALS: BP 129/62; PULSE 97; TEMP 97.9
--- NOTE | 2021-02-25 13:11 | NUR ---
Plan is to return home with family. SW met with patient about care and DC plan. Patient reports that she resides locally wiht her Daugher Eide who is also dual POA with son Shane [phone]. Patient reports that her daughter is a home health agent and can support her with home health and does no believe she will need additional supports since her daughter takes care of her ADL's. Patient reports that she also has a sister locally that helps sometimes with transportation and care. Patient reports that her PCP is Dr. Toledo last seen 3 week, Dr. Adler, Dr. Lanier, a lung Dr. in [place], and another specialist in [place], [place]. Patient reports that she has the phone numbers to each of her doctors. Patient reports that she has a cane and walker and used them interchangably, uses 3-4 liters of oxygen, serviced by [employer]. Patient reports that she may need a voucher home with Taxi if her daughter works or sister is unavailable to take her home at the time of DC. Patient declines home health care supports. WF>
[2021-02-25 16:32] VITALS: BP 128/62; PULSE 101; TEMP 98.1
--- NOTE | 2021-02-25 17:38 | NUR ---
PT HAD UNEVENTFUL SHIFT. PAIN RELIEVED WITH MORPHINE. PT HAS NO NEEDS AT THIS TIME. RESTING IN BED. CALL REN IN REACH
--- NOTE | 2021-02-25 18:11 | NUR ---
PT GOING DOWN FOR CT SCAN
[2021-02-25 20:20] VITALS: BP 129/66; PULSE 105; TEMP 97.7
--- NOTE | 2021-02-25 20:30 | NUR ---
Assessment complete. A&Ox4-anxious. Denies nausea. Rating pain 7/10 on pain scale-generalized pain-described as ache. C/O mucous and requesting mucinex as well as a sleep aid. Spoke with XU MukherjeeFR-Ogxuvzszlrm-nik orders received. Noted to have insp wheezing bilat-all saenz. VS are currently stable. O2 sat 95% on 3L/NC. Plan of care discussed for this shift to include meds/calling for needs/O2 sat monitoring. Verbalizes understanding/denies needs. Call light in reach. Will monitor.
[2021-02-25 23:54] VITALS: BP 114/63; PULSE 86; TEMP 97.8
[2021-02-26 03:31] VITALS: BP 111/62; PULSE 86; TEMP 98
--- NOTE | 2021-02-26 06:53 | NUR ---
REPORT RECEIVED FROM ALLISON TIM. PT ASLEEP IN BED. BREATHING REG/UNLABORED. CALL REN IN REACH
[2021-02-26 08:34] VITALS: BP 116/53; PULSE 87; TEMP 97.6
[2021-02-26 11:44] VITALS: BP 127/67; PULSE 103; TEMP 98.1
[2021-02-26] MEDS ORDERED: PREDNISONE20 MG PO (11:47)
[2021-02-26] MEDS ORDERED: OMNICEF 300MG300 MG PO (13:01)
--- NOTE | 2021-02-26 13:58 | NUR ---
DISCHARGE INSTRUCTIONS REVIEWED WITH PT. QUESTIONS INVITED AND ANSWERED. IV REMOVED. PT DRESSED AND READY TO GO
--- NOTE | 2021-02-26 14:17 | NUR ---
SW informed that patient would be discharged and would need specific orders to have humidified O2. Patient is noted to have [employer] services. BLAYNE faxed orders to existing company. Nothing further.
--- NOTE | 2021-02-28 11:53 | NUR ---
ALLISON Argueta, notified BLAYNE that she contacted the patient for the discharge follow up call. The patient informed her that she was suppose to be getting humidified oxygen from her supplier, [employer], but she has not received it yet. BLAYNE contacted [employer] in [place] to follow up. The technical services representative reports that they will send out the bubbler, which is the humidifier, to the patient today. It will overnight ship and be delivered to the patient's home tomorrow. BLAYNE contacted the patient and updated her on the above. The patient verbalized understanding and appreciated the call. No additional needs at this time.
== END 2021-02-26 15:32 | disposition home or self-care (01) ==
LOC: COL.ER 20:10 → MEDICAL 22:00
PROVIDERS: Emergency Medicine; Student in an Organized Health Care Education/Training Program; ADMIT Internal Medicine
DX: J96.21 Acute and chronic respiratory failure with hypoxia (principal); J45.901 Unspecified asthma with (acute) exacerbation; J44.9 Chronic obstructive pulmonary disease, unspecified; E87.6 Hypokalemia; I10 Essential (primary) hypertension; I27.20 Pulmonary hypertension, unspecified; M32.9 Systemic lupus erythematosus, unspecified; I73.00 Raynaud's syndrome without gangrene; M79.7 Fibromyalgia; G89.29 Other chronic pain; K21.9 Gastro-esophageal reflux disease without esophagitis; R65.10 Systemic inflammatory response syndrome (SIRS) of non-infectious origin without acute organ dysfunction; E11.9 Type 2 diabetes mellitus without complications; D64.9 Anemia, unspecified; K52.9 Noninfective gastroenteritis and colitis, unspecified; F41.9 Anxiety disorder, unspecified; F32.A Depression, unspecified; Z90.710 Acquired absence of both cervix and uterus; Z90.89 Acquired absence of other organs; Z79.899 Other long term (current) drug therapy; Z87.891 Personal history of nicotine dependence; Z83.3 Family history of diabetes mellitus; Z80.0 Family history of malignant neoplasm of digestive organs
CPT/HCPCS: 99223-AI; G0378; J0692; J0696; J1650; J1815; J2270; J2930

== ENCOUNTER → 2021-04-25 | Outpatient (CLI) | payer MEDICARE, MEDICAID ==
[~2021-04-25] MED LIST changes: +BLUE-EMU LIDOC1 EACH TP; +IPRATROPIUM BROM3 M1 IH; +K-DUR20 MEQ PO; +LIPITOR 40MG TA40 MG PO; +OXYGEN NASAL.CANN
== END ==
LOC: MC.RAD 13:14
DX: Z12.31 Encounter for screening mammogram for malignant neoplasm of breast (principal)

== ENCOUNTER 2021-04-30 20:18 | Inpatient (IN) | payer MEDICARE, MEDICAID ==
[~2021-04-30] VITALS: Ht 154.9 cm; Wt 50.3 kg
[~2021-04-30 20:18] MED LIST changes: -BLUE-EMU LIDOC1 EACH TP; -IPRATROPIUM BROM3 M1 IH; -K-DUR20 MEQ PO; -OXYGEN NASAL.CANN
[2021-04-30 21:24] LABS: HEMATOCRIT 39.7 % (37.0-47.0); HEMOGLOBIN 13.1 g/dl (12.5-16.0); MEAN CELL VOLUME 90 fl (80.0-100.0); MEAN CORPUSCULAR HEMOGLOBIN 30 pg (27-31); MEAN CORPUSCULAR HGB CONC 33 g/dl (33.0-37.0); MEAN PLATELET VOLUME 10.6 fl (7.4-10.4); PLATELET COUNT 164 K/mm3 (130-400); RED BLOOD COUNT 4.42 M/mm3 (4.10-5.30)
[2021-04-30 21:30] LABS: ALANINE AMINOTRANSFERASE 33 U/L (0-55); ALBUMIN 3.7 gm/dL (3.4-4.8); ALKALINE PHOSPHATASE 99 U/L (40-150); ANION GAP 12 mmol/L (7-16); AST,SGOT 42 U/L (5-34); BILIRUBIN,TOTAL 0.6 mg/dL (0.2-1.2); BLOOD UREA NITROGEN 12 mg/dL (10-20); CALCIUM 9.2 mg/dL (8.4-10.2); CARBON DIOXIDE 23 mmol/L (23-31); CHLORIDE 104 mmol/L (98-107); CREATININE, serum 0.74 mg/dL (0.57-1.11); GLUCOSE 155 mg/dL (70-99); POTASSIUM 3.5 mmol/L (3.5-4.5); SODIUM 139 mmol/L (136-145); TOTAL PROTEIN 7.4 gm/dL (6.2-8.1)
[2021-04-30 21:37] LABS: TROPONIN-I < 0.010 ng/mL (0.00-0.033)
[2021-04-30 21:54] LABS: BAND 1 % (0-10); EOSINOPHIL 16 % (0-4); LYMPHOCYTE 13 % (20.0-51.0); NEUTROPHILS 65 % (42.0-75.2); PLATELET ESTIMATE NORMAL (NORMAL)
[2021-04-30 23:12] LABS: COLLECTION METHOD CLEAN CATCH
[2021-04-30 23:22] LABS: PH 6 (5-8); SQUAMOUS EPITHELIAL 0-2 /hpf (0-10); URINE APPEARANCE Clear (CLEAR/HAZY); URINE BACTERIA None Seen /hpf (NONE SEEN); URINE BILIRUBIN Negative (NEGATIVE); URINE BLOOD 1+ (NEGATIVE); URINE COLOR Yellow (YELLOW); URINE GLUCOSE 1+ (NEGATIVE); URINE KETONE Negative (NEGATIVE); URINE LEUKOCYTE ESTERASE Negative (NEGATIVE); URINE NITRATE Negative (NEGATIVE); URINE PROTEIN(semi-quant) Negative (NEGATIVE); URINE RBC 0-2 /hpf (0-2); URINE UROBILINOGEN Negative (NEGATIVE)
[2021-04-30] MEDS ORDERED: MORPHINE 1515 MG/TAB PO (23:30)
[2021-04-30] MEDS ORDERED: PROAIR HFA0.09 MG/AC IH (23:30)
[2021-04-30] MEDS ORDERED: ALBUTEROL1.25 MG/3 IH (23:30)
[2021-04-30] MEDS ORDERED: CELEXA40 MG PO (23:31)
[2021-04-30] MEDS ORDERED: RT ADVAIR HFA 1112 G IH (23:31)
[2021-04-30] MEDS ORDERED: IPRATROPIUM BROM3 M1 IH (23:31)
[2021-04-30] MEDS ORDERED: SINGULAIR 110 MG/TAB PO (23:31)
[2021-04-30] MEDS ORDERED: SEROQUEL50 MG PO (23:32)
[2021-04-30] MEDS ORDERED: CARAFATE 1GM1 G PO (23:32)
[2021-04-30] MEDS ORDERED: K-DUR20 MEQ PO (23:32)
[2021-04-30] MEDS ORDERED: LIPITOR 40MG TA40 MG PO (23:33)
[2021-04-30] MEDS ORDERED: FLONASEALLERGY NS (23:33)
[2021-04-30] MEDS ORDERED: NORVASC 5MG5 MG/TAB PO (23:33)
[2021-04-30] MEDS ORDERED: PROTONIX 40MG T40 MG PO (23:33)
[2021-04-30] MEDS ORDERED: ANTIVERT 25MG25 MG PO (23:34)
[2021-04-30] MEDS ORDERED: LASIX 20MG TABL20 MG PO (23:34)
--- NOTE | 2021-05-01 00:26 | NUR ---
RECEIVED REPORT FROM ED RNSUKI. WAITING FOR PATIENT ARRIVAL FOR ADMIT TO ROOM 343
--- NOTE | 2021-05-01 00:35 | NUR ---
PATIENT ARRIVED TO ROOM PER W/C WITH ED PCT TRANSPORTING PATIENT. INT TO LAC IN PLACE.
[2021-05-01 00:43] VITALS: BP 122/62; PULSE 100; TEMP 98.4
[2021-05-01 00:58] LABS: C-REACTIVE PROTEIN 7.5 mg/dL (0.00-0.50); MAGNESIUM 1.8 mg/dL (1.6-2.6)
[2021-05-01 03:39] VITALS: BP 104/54; PULSE 96; TEMP 98.2
[2021-05-01 06:57] LABS: BASO % 0.5 % (0.0-2.0); EOS # 0.1 K/mm3 (0.0-0.7); EOS % 1.2 % (0.0-4.0); GRAN # 4.9 K/mm3 (1.4-6.5); GRAN % 84.3 % (42.2-75.2); HEMOGLOBIN 11.5 g/dl (12.5-16.0); LYMPH # 0.7 K/mm3 (1.2-3.4); LYMPH % 12.3 % (20.0-51.0); MEAN CELL VOLUME 89 fl (80.0-100.0); MEAN CORPUSCULAR HEMOGLOBIN 29 pg (27-31); MEAN CORPUSCULAR HGB CONC 33 g/dl (33.0-37.0); MEAN PLATELET VOLUME 10.8 fl (7.4-10.4); MONO # 0.1 K/mm3 (0.1-0.6); PLATELET COUNT 125 K/mm3 (130-400); RED BLOOD COUNT 3.91 M/mm3 (4.10-5.30); REDCELL DISTRIBUTION WIDTH-CV 14.9 % (11.5-14.5)
[2021-05-01 07:02] LABS: HEMATOCRIT 34.7 % (37.0-47.0)
[2021-05-01 07:08] LABS: CALCIUM 9.1 mg/dL (8.4-10.2); CREATININE, serum 0.72 mg/dL (0.57-1.11); POTASSIUM 4.9 mmol/L (3.5-4.5)
--- NOTE | 2021-05-01 07:41 | NUR ---
CHANGE OF SHIFT REPORT GIVEN TO DAY SHIFT RNROLAND.
[2021-05-01 07:54] VITALS: BP 108/59; PULSE 103; TEMP 97.3
--- NOTE | 2021-05-01 08:00 | NUR ---
PATIENT IS A&O. VSS ON TELE. PATIENT ON 2-3L PER NC TO KEEP SATS ABOVE MID 90'S. PATIENT ON 02 AT HOME AND THIS IS HER BASELING. HX OF COPD, ASTHMA & PULM HTN. NOTED EXP WHEEZES. OCCATIONAL NON-PRODUCTIVE COUGH NOTED. NO C/O N/V. TOLERATING GENERAL DIET. AM MEDS GIVEN. PATIENT VERY CONCERNED ABOUT HER AM DOSE OF MORPHINE IR. PATIENT GOT A NON-SCHEDULED DOSE FROM AGENT BASED MODELER DUE TO MISSING HER EVENING DOSE. NURSING CALLED PHARMACY ABOUT APPROPRIATE DOSING TIME. PHARMACY RECOMMENED GIVING AM DOSE AT 1000. PATIENT STARTED TO BECOME VERY UPSET AND DID NOT WANT TO WAIT THAT LONG. NURSING CALLED PHARMACY AND WENT OVER WHEN PATIENT NORMALLY TAKES HER MORPHINE AT HOME. PATIENT REPORTS SHE TAKES ONE IN THE AM BETWEEN 8-9AM, 4PM, AND ONE BEFORE BED BETWEEN 8-9PM. NURSING CONFIRMED THIS BY RESTATING THE TIMES WITH PHARMACY ON THE PHONE. PATIENT AGAIN CONFIRMED TIMES STATING SHE CAN'T GO FROM 1400 TO 2100. NURSING ENTERED A HOLD AND PHARMACY RETIMED. OTHER AM MEDS GIVEN. HEAD TO TOE ASSESSMENT COMPLETE, SEE CHARTING. AM BS WAS 255, GAVE SSI. LEFT AC IV TO INT. NO OTHER NEEDS AT THIS TIME. CALL LIGHT IN REACH.
--- NOTE | 2021-05-01 09:58 | NUR ---
adoption worker met with patient to discuss discharge plan. Patient reports that she lives at home with her daughter Chica ([phone]) in [facility]. Patient reports that she is mostly independent at home with her ADL's but her daughter Chica helps minimally with showering. Patient utilizes both a cane and a walker to assist with mobility. Patient is on 4-5L of oxygen NC supplied through [employer]. Patient doesn't feel like her oxygen concentrator is working like it should be and is also interested in getting an air purifier from her oxygen supplier. Educated the patient that i would look into this but unsure if it is covered by insurance.PCP is Dr. Toledo and she utilizes [facility] for perscription needs. Patient has a DPOA-HC on file with the hospital listing her daughter as her agent. Patient is planning on returning home. Request for PT/OT to evaluate the patient placed with PA. Discharge plan: Pending PT/OT rec's
--- NOTE | 2021-05-01 10:51 | NUR ---
Initial visit; Patient from [place] and thanked Oxyacetylene Burner for visiting her and offering prayer and God's blessings. Oxyacetylene Burner will follow up.
[2021-05-01 11:35] VITALS: BP 132/65; PULSE 104; TEMP 97.9
--- NOTE | 2021-05-01 12:00 | NUR ---
NURSING ENTERED ROOM TO PLACE LIDO PATCH ON PATIENT PER HOSPITALIST ORDERS. PATIENT SEEMED ANNOYED STATING "HOW IS THAT GOING TO HELP MY PAIN". WHEN NURSING ASKED WHERE SHE WOULD LIKE IT THE PATIENT REPLIED "FROM MY EYEBROWS TO MY ANKLES". NURSING EDUCATED HER ABOUT IT BEING ONLY ONE TOPICAL PATCH AND ASKED HER IF THERE WAS A SPECIFIC AREA THAT HURT. PATIENT SAT UP AND HAD NURSING APPLY IT TO HER BACK.
--- NOTE | 2021-05-01 15:15 | NUR ---
PATIENT CALLED OUT FOR NURSE AND DEMANDING HER NEXT DOSE OF ORAL MORPHINE IR. NURSING REMINDED PATIENT OF CONVERSATION WITH HER, NURSING & PHARMACY THIS AM. PATIENT RECEIVED AN UNSCEDULED DOSE OF MORPHINE IR FROM LIVESTOCK JUDGING COACH DUE TO MISSING A DOSE BEFORE BED. PHARMACY INSTRUCTED NURSING TO GO AHEAD AND GIVEN AM DOSE AROUND 0900. PATIENT CLARIFIED SHE TAKE HER MORPHINE AT HOME BETWEEN [id number], 1600 & AGAIN BETWEEN [id number]. NURSING PUT A HOLD ON MED AND HAD PHARMACY CORRECT DOSING. PATIENT IS NOW STATING SHE TAKES HER MORPHINE AT 0800, 1400 & 2100 AND WAS VERY UPSET SHE HAD NO HAD HER 1400 DOSE YET. NURSING REMINDED PATIENT OF HER CONVERSATION WITH NURSING & PHARMACY THIS AM WHERE SHE REQUESTED 0900, 1600 & 2100. PATIENT SWEARS THAT NOT WHAT SHE MEANT AND WANTS IT CHANGED. PHARMACY & CONCRETE VAULT MAKER NOTIFIED. ANIMAL PHYSIOLOGIST WENT INTO TALK TO PATIENT WHO WAS MAKING A SCENE OVER WANTING HER PAIN MEDS RIGHT NOW. SEE ORDERS.
--- NOTE | 2021-05-01 16:08 | NUR ---
Patient wants to speak with me to give me an update that she had called [employer] and they are able to bring out a new portable concentrator on Saturday, but the patient has an appointment with her security team lead on and she "doesn't trust" her portable to get her to [place] and asked if i could call her oxygen company to see if they can deliver her new portable earlier then Saturday. I informed her i can try but i couldn't guarantee they will deliver it any sooner. Spoke with RT as they were going into her room to provide education on the portable.
[2021-05-01 16:17] VITALS: BP 143/72; PULSE 105
[2021-05-01 20:13] VITALS: BP 149/66; PULSE 120; TEMP 97.4
[2021-05-02 00:50] VITALS: BP 115/53; PULSE 108; TEMP 98.4
--- NOTE | 2021-05-02 01:53 | NUR ---
PATIENT HAD PREVIOUSLY CALLED DESK SEVERAL TIMES FOR HER MORPHINE DOSE. PATIENT WAS REMINDED SEVERAL TIMES BY RO COOPER THAT THIS NURSE WAS IN ANOTHER ROOM AND WOULD BRING HER MEDS SOON SHE CAN. WHEN MORPHINE WAS BROUGHT, PATIENT WAS VERY UPSET AND VERBALLY AGRESSIVE. DISCUSSED WITH PATIENT THAT THERE ARE OTHER PATIENTS TO WHICH SHE REPLIED SHE "DID NOT CARE". REQUESTED TO SPEAK WITH CHARGE NURSE, RO COOPER, WHO THEN TALKED WITH THE PATIENT.
[2021-05-02 04:52] VITALS: BP 129/67; PULSE 106; TEMP 98.4
[2021-05-02 06:36] LABS: BASO % 0.2 % (0.0-2.0); EOS % 0.1 % (0.0-4.0); GRAN # 9.6 K/mm3 (1.4-6.5); GRAN % 88.5 % (42.2-75.2); HEMOGLOBIN 11.2 g/dl (12.5-16.0); LYMPH # 0.8 K/mm3 (1.2-3.4); LYMPH % 7.6 % (20.0-51.0); MEAN CELL VOLUME 89 fl (80.0-100.0); MEAN CORPUSCULAR HEMOGLOBIN 29 pg (27-31); MEAN CORPUSCULAR HGB CONC 33 g/dl (33.0-37.0); MEAN PLATELET VOLUME 10.3 fl (7.4-10.4); MONO # 0.3 K/mm3 (0.1-0.6); PLATELET COUNT 142 K/mm3 (130-400); RED BLOOD COUNT 3.84 M/mm3 (4.10-5.30); REDCELL DISTRIBUTION WIDTH-CV 15.2 % (11.5-14.5)
[2021-05-02 06:43] LABS: HEMATOCRIT 34.3 % (37.0-47.0)
[2021-05-02 06:55] LABS: CALCIUM 9.4 mg/dL (8.4-10.2); CREATININE, serum 0.77 mg/dL (0.57-1.11)
--- NOTE | 2021-05-02 06:55 | NUR ---
Report received from ALLISON Medina. Patient is resting in bed and c/o pain level of 4. Patient informed this nurse she had just gotten a dose of morphine not to long ago so her pain is not bad at this time. Call light and bedside table are within reach. Will continue to monitor patient throughout shift.
[2021-05-02 07:28] VITALS: BP 126/64; PULSE 102; TEMP 97.1
[2021-05-02 12:30] VITALS: BP 158/67; PULSE 107
--- NOTE | 2021-05-02 14:39 | NUR ---
Vicente spoke with the patient's oxygen company who advises that the patient currently has a portable pulse nebulizer. They are to deliver the patient continuous tanks on Saturday of this week and are unable to deliver any sooner then this.
[2021-05-02 16:00] VITALS: BP 121/55; PULSE 115; TEMP 97.9
[2021-05-02 19:44] VITALS: BP 140/60; PULSE 108; TEMP 98.4
[2021-05-03 00:19] VITALS: BP 114/60; PULSE 93; TEMP 97.7
--- NOTE | 2021-05-03 00:30 | NUR ---
PATIENT ALERT AND ORIENTED. SCHEDULED MORPHINE GIVEN FOR SEVERE PAIN THAT IS "ALL OVER". L AC INT PATENT AND FLUSHES EASILY. SCHEDULED MEDS ADMINISTERED.
[2021-05-03 04:23] VITALS: BP 135/69; PULSE 89; TEMP 97.9
[2021-05-03 06:41] LABS: BASO % 0.1 % (0.0-2.0); GRAN # 8.8 K/mm3 (1.4-6.5); GRAN % 87.3 % (42.2-75.2); HEMOGLOBIN 11.7 g/dl (12.5-16.0); LYMPH # 0.9 K/mm3 (1.2-3.4); LYMPH % 9.2 % (20.0-51.0); MEAN CELL VOLUME 92 fl (80.0-100.0); MEAN CORPUSCULAR HEMOGLOBIN 30 pg (27-31); MEAN CORPUSCULAR HGB CONC 32 g/dl (33.0-37.0); MEAN PLATELET VOLUME 10.8 fl (7.4-10.4); MONO # 0.3 K/mm3 (0.1-0.6); MONO % 2.6 % (1.7-9.3); PLATELET COUNT 144 K/mm3 (130-400); RED BLOOD COUNT 3.92 M/mm3 (4.10-5.30); REDCELL DISTRIBUTION WIDTH-CV 15.6 % (11.5-14.5)
[2021-05-03 06:42] LABS: HEMATOCRIT 36.1 % (37.0-47.0)
--- NOTE | 2021-05-03 06:45 | NUR ---
Report received from ALLISON Gomez. Patient is resting comfortably in bed. Call light and bedside table are within reach. Will continue to monitor patient throughout shift.
[2021-05-03 06:58] LABS: CALCIUM 9.5 mg/dL (8.4-10.2); CREATININE, serum 0.77 mg/dL (0.57-1.11)
[2021-05-03 07:23] VITALS: BP 141/71; PULSE 81; TEMP 97.6
[2021-05-03] MEDS ORDERED: BLUE-EMU LIDOC1 EACH TP (09:10)
[2021-05-03] MEDS ORDERED: PREDNISONE20 MG PO (09:15)
[2021-05-03] MEDS ORDERED: OXYGEN NASAL.CANN (09:37)
--- NOTE | 2021-05-03 10:50 | NUR ---
PT WEARS 2L @BASELINE. PT HAS PULSE DOES CONCENTRATOR AT HOME WHICH CANNOT HOLD UP TO THE DEMAND. PT NEEDS 2L CONTINOUS FLOW OXYGEN WITH AMBULATION.
[2021-05-03 12:00] VITALS: BP 123/59; PULSE 91; TEMP 97.9
--- NOTE | 2021-05-03 12:34 | NUR ---
SW notified that the patient is needing assistance with transportation home. Spoke with the patient who states that her daughter works 12 hour shifts (11 am-11pm) and is not available to assist. Patient reports that she has no friends that are able to assist and her sister doesn't drive. Per nursing staff, the patient is wanting to stay during the lunch hour so she can eat before she returns home.
--- NOTE | 2021-05-03 12:58 | NUR ---
First visit from the bunch breaker machine operator. prayed with patient. No other needs right now
--- NOTE | 2021-05-03 13:33 | NUR ---
[employer] states that they cannot pick this patient up until 1700 today. [employer] transportation contacted who will not have a bus van driver available until 1500. Patient attempts to call a man named Ajith who she has gotten taxi rides from in the past. Unable to reach him. supervisor liquefaction present at this time and assists with getting this patient an [employer]. Patient has feldman but does not have a CC on her. Patient assisted with payment from this social services director. supervisor liquefaction take the patient out to the [employer] in a wheelchair.
--- NOTE | 2021-05-03 14:00 | NUR ---
Patient has been discharged and signed all paperwork. Personal belonging have been removed to include cell phone and dowel maker and was packed by patient. Patient was transported via wheelchair and seatbelted in for ride home by [facility].
--- NOTE | 2021-05-03 16:39 | NUR ---
SW received message from Luzma at [facility] regarding the patient's oxygen. Attempt made to contact Luzma stating that the hospital did not set the patient up with anything new going home and that i had been in contact with the patient's oxygen company as well. Informed Luzma that the patient has an appointment tomorrow with her window unit air conditioning mechanic and if there were any additional questions or concerns to follow up with that office.
== END 2021-05-03 12:40 | disposition home or self-care (01) | DRG 191 ==
LOC: COL.ER 20:18 → SURG 22:06
PROVIDERS: Emergency Medicine; Nurse Practitioner Family; Physician Assistant; ADMIT Internal Medicine
DX: J44.1 Chronic obstructive pulmonary disease with (acute) exacerbation (principal); J96.11 Chronic respiratory failure with hypoxia; R65.10 Systemic inflammatory response syndrome (SIRS) of non-infectious origin without acute organ dysfunction; I10 Essential (primary) hypertension; I27.20 Pulmonary hypertension, unspecified; M32.9 Systemic lupus erythematosus, unspecified; I73.00 Raynaud's syndrome without gangrene; M79.7 Fibromyalgia; G89.29 Other chronic pain; M54.9 Dorsalgia, unspecified; K21.9 Gastro-esophageal reflux disease without esophagitis; D64.9 Anemia, unspecified; F31.9 Bipolar disorder, unspecified; E87.6 Hypokalemia; M94.0 Chondrocostal junction syndrome [Tietze]; E11.9 Type 2 diabetes mellitus without complications; Z88.0 Allergy status to penicillin; Z87.891 Personal history of nicotine dependence; Z20.822 Contact with and (suspected) exposure to COVID-19
CPT/HCPCS: 99223-AI; 99232-AI; 99233-AI; 99239; J0456; J0692; J1650; J1815; J2270; J2920; J2930; J7040; J7050; J7512

== ENCOUNTER 2021-05-17 10:25 | Day surgery (SDC) | payer MEDICARE, MEDICAID ==
[~2021-05-17] VITALS: Ht 154.9 cm; Wt 49.3 kg
[~2021-05-17 10:25] MED LIST changes: +BLUE-EMU LIDOC1 EACH TP; +IPRATROPIUM BROM3 M1 IH; +K-DUR20 MEQ PO; +OXYGEN NASAL.CANN
[2021-05-17 11:34] VITALS: BP 107/56; PULSE 95; TEMP 98.9
[2021-05-17 13:10] VITALS: BP 98/59; PULSE 85; TEMP 98.9
--- NOTE | 2021-05-17 13:10 | NUR ---
Pt returned via cart to recliner in [facility] 6. VSS-see flowsheet. Pt sitting in recliner, warm blankets given. Call light in reach. Given food and drink per request.
[2021-05-17 13:25] VITALS: BP 102/55; PULSE 84
[2021-05-17 13:40] VITALS: BP 103/54; PULSE 85
--- NOTE | 2021-05-17 14:12 | NUR ---
IV removed, pressure dressing applied. VS remain stable, see flowsheet. Pt tolerated a muffin and juice. Dr Almonte in post procedure to visit with pt. Discharge teaching completed, pt verbalized understanding and sent with dc packet upon dc. Pt taken via wheelchair to private vehicle for dc home with sister, Ana, driving.
== END 2021-05-17 14:10 | disposition home or self-care (01) ==
LOC: SDCO 10:25
DX: K31.7 Polyp of stomach and duodenum (principal); K29.70 Gastritis, unspecified, without bleeding; K21.9 Gastro-esophageal reflux disease without esophagitis; E11.9 Type 2 diabetes mellitus without complications; I10 Essential (primary) hypertension; E78.5 Hyperlipidemia, unspecified; J44.9 Chronic obstructive pulmonary disease, unspecified; F32.A Depression, unspecified; F41.9 Anxiety disorder, unspecified; I73.00 Raynaud's syndrome without gangrene; I27.20 Pulmonary hypertension, unspecified; M34.9 Systemic sclerosis, unspecified; K22.10 Ulcer of esophagus without bleeding; Z99.81 Dependence on supplemental oxygen; Z87.891 Personal history of nicotine dependence; Z79.899 Other long term (current) drug therapy; Z79.51 Long term (current) use of inhaled steroids
CPT/HCPCS: J2704

== ENCOUNTER 2021-06-04 19:20 | Inpatient (IN) | payer MEDICARE, MEDICAID ==
[~2021-06-04] VITALS: Ht 154.9 cm; Wt 49.8 kg
[2021-06-04 20:04] LABS: BASO # 0.1 K/mm3 (0.0-0.2); BASO % 1.2 % (0.0-2.0); EOS # 0.9 K/mm3 (0.0-0.7); EOS % 8.5 % (0.0-4.0); GRAN # 6.2 K/mm3 (1.4-6.5); GRAN % 57.2 % (42.2-75.2); HEMATOCRIT 39.2 % (37.0-47.0); HEMOGLOBIN 12.9 g/dl (12.5-16.0); LYMPH # 2.9 K/mm3 (1.2-3.4); LYMPH % 26.2 % (20.0-51.0); MEAN CELL VOLUME 90 fl (80.0-100.0); MEAN CORPUSCULAR HEMOGLOBIN 30 pg (27-31); MEAN CORPUSCULAR HGB CONC 33 g/dl (33.0-37.0); MEAN PLATELET VOLUME 9.6 fl (7.4-10.4); MONO # 0.7 K/mm3 (0.1-0.6); MONO % 6.5 % (1.7-9.3); PLATELET COUNT 196 K/mm3 (130-400); RED BLOOD COUNT 4.34 M/mm3 (4.10-5.30); REDCELL DISTRIBUTION WIDTH-CV 13.8 % (11.5-14.5)
[2021-06-04 20:30] LABS: ARTERIAL BLD GAS O2 SATURATION 94.1 % (92-100); ARTERIAL BLD GAS TCO2 CT 29.4; ARTERIAL BLOOD GAS BASE EXCESS 2.4 (-2-2); ARTERIAL BLOOD GAS PCO2 47.4 mmHg (35-45); ARTERIAL BLOOD GAS PO2 65.7 mmHg (80-100); ARTERIAL BLOOD GAS pH 7.39 (7.35-7.45)
[2021-06-04 20:34] LABS: ALANINE AMINOTRANSFERASE 24 U/L (0-55); ALKALINE PHOSPHATASE 101 U/L (40-150); ANION GAP 12 mmol/L (7-16); AST,SGOT 28 U/L (5-34); BILIRUBIN,TOTAL 0.7 mg/dL (0.2-1.2); BLOOD UREA NITROGEN 7 mg/dL (10-20); CALCIUM 9.5 mg/dL (8.4-10.2); CARBON DIOXIDE 28 mmol/L (23-31); CHLORIDE 100 mmol/L (98-107); CREATININE, serum 0.72 mg/dL (0.57-1.11); GLUCOSE 130 mg/dL (70-99); SODIUM 140 mmol/L (136-145)
[2021-06-04 20:41] LABS: TROPONIN-I < 0.010 ng/mL (0.00-0.033)
[2021-06-04 22:53] VITALS: BP 134/76; PULSE 96; TEMP 99.2
--- NOTE | 2021-06-04 23:51 | NUR ---
PATIENT UP TO ROOM AT 2230. ALERT AND ORIENTED. MED RX COMPLETED, ASSESSMENTS COMPLETED. VSS ON 5 L NC. SPUTUM CULTURE AT BEDSIDE.
[2021-06-05 00:27] VITALS: BP 107/55; PULSE 114; TEMP 98.1
[2021-06-05 04:21] VITALS: BP 109/52; PULSE 84; TEMP 97.6
[2021-06-05 06:54] LABS: HEMOGLOBIN 11.7 g/dl (12.5-16.0); MEAN CELL VOLUME 91 fl (80.0-100.0); MEAN CORPUSCULAR HEMOGLOBIN 30 pg (27-31); MEAN CORPUSCULAR HGB CONC 33 g/dl (33.0-37.0); MEAN PLATELET VOLUME 10.2 fl (7.4-10.4); PLATELET COUNT 156 K/mm3 (130-400); RED BLOOD COUNT 3.93 M/mm3 (4.10-5.30); REDCELL DISTRIBUTION WIDTH-CV 13.7 % (11.5-14.5)
[2021-06-05 07:10] LABS: HEMATOCRIT 35.6 % (37.0-47.0)
[2021-06-05 07:16] LABS: CALCIUM 9.2 mg/dL (8.4-10.2); CREATININE, serum 0.73 mg/dL (0.57-1.11); POTASSIUM 4.2 mmol/L (3.5-4.5)
[2021-06-05 07:54] VITALS: BP 118/55; PULSE 79; TEMP 97.6
[2021-06-05 09:04] LABS: BAND 1 % (0-10); LYMPHOCYTE 16 % (20.0-51.0); NEUTROPHILS 83 % (42.0-75.2); PLATELET ESTIMATE NORMAL (NORMAL)
[2021-06-05 11:37] VITALS: BP 108/48; PULSE 98; TEMP 98.2
--- NOTE | 2021-06-05 11:50 | NUR ---
PT LAYING IN BED SLEEPING. PT STATES THAT SHE IS HAVING SOME PAIN IN HER HEAD AND NECK. RATES IT A 7 OUT OF 10. PT STATES THAT SHE DOES NOT NEED ANYTHING AT THIS TIME. CALL LIGHT IS WITHIN REACH.
--- NOTE | 2021-06-05 13:47 | NUR ---
First visit from the attendance officer. prayed with patient. No other needs right now.
[2021-06-05] MEDS ORDERED: VITAMIN D31000 IU PO (14:29)
[2021-06-05] MEDS ORDERED: LOMOTIL 0.025 M1 TAB PO (14:32)
[2021-06-05] MEDS ORDERED: NYSTATIN OR100 MU/ML PO (14:37)
[2021-06-05] MEDS ORDERED: MYCOSTATIN100000 U/1 TP (14:39)
[2021-06-05] MEDS ORDERED: ATARAX 25MG25 MG/TAB PO (14:57)
--- NOTE | 2021-06-05 16:02 | NUR ---
Anesthesiology Teacher met with patient to discuss discharge planning. Patient lives in [place] with her daughter, Chica (ph#[phone]) [address]. Toledo for primary care. Patient obtains medications from [facility] and home oxygen from [facility]. Patient also has a cane and walker at home. Patient is independent going to the bathroom, however has assistance from her daughter with dressing and bathing. Patient has Advance Directives in EMR which designates her daughter, Chica as DPOA-HC. Patient plans to return home upon discharge. SW discussed home health services with patient who advised she does not feel she needs them at this time. Discharge Plan: Home
[2021-06-05 16:46] VITALS: BP 121/64; PULSE 112; TEMP 97.9
--- NOTE | 2021-06-05 19:00 | NUR ---
PT FINISHED DINNER. STATES THAT SHE DOES NOT NEED ANYTHING AT THIS TIME. CALL LIGHT IS FANNIE MADISON.Y\
[2021-06-05 21:21] VITALS: BP 126/64; PULSE 109; TEMP 98.3
[2021-06-06 01:04] VITALS: BP 107/51; PULSE 97; TEMP 97.8
--- NOTE | 2021-06-06 03:41 | NUR ---
C/O back pain-rating pain 8/10 on pain scale described as constant ache with intermittent sharpness. XU Mukherjee notified-to early to receive Morphine. New orders received and initiated.
[2021-06-06 04:41] VITALS: BP 126/57; PULSE 91; TEMP 98
--- NOTE | 2021-06-06 06:11 | NUR ---
Rested off and on this shift. Received morphine/tramadol for pain. Xanax x1 for anxiety. Denies current needs. Call light in reach. WIll monitor.
[2021-06-06 06:56] LABS: BASO % 0.1 % (0.0-2.0); CALCIUM 9.7 mg/dL (8.4-10.2); CREATININE, serum 0.75 mg/dL (0.57-1.11); GRAN # 10.2 K/mm3 (1.4-6.5); GRAN % 89.6 % (42.2-75.2); HEMOGLOBIN 11.9 g/dl (12.5-16.0); LYMPH # 0.8 K/mm3 (1.2-3.4); LYMPH % 7.2 % (20.0-51.0); MEAN CELL VOLUME 90 fl (80.0-100.0); MEAN CORPUSCULAR HEMOGLOBIN 30 pg (27-31); MEAN CORPUSCULAR HGB CONC 33 g/dl (33.0-37.0); MONO # 0.3 K/mm3 (0.1-0.6); MONO % 2.2 % (1.7-9.3); PLATELET COUNT 174 K/mm3 (130-400); RED BLOOD COUNT 4.04 M/mm3 (4.10-5.30); REDCELL DISTRIBUTION WIDTH-CV 14.2 % (11.5-14.5)
--- NOTE | 2021-06-06 07:08 | NUR ---
PT LAYING IN BED ON PHONE. STATES THAT SHE WOULD LIKE TO HAVE SOME CRACKERS AND A POP. ITEMS WERE GIVEN TO PT. NO OTHER NEEDS VOICED AT THIS TIME. CALL LIGHT IS WITHIN REACH.
[2021-06-06 07:11] LABS: HEMATOCRIT 36.2 % (37.0-47.0)
[2021-06-06 07:46] VITALS: BP 131/59; PULSE 116; TEMP 97.7
[2021-06-06 11:28] VITALS: BP 114/57; PULSE 116; TEMP 98.6
--- NOTE | 2021-06-06 16:09 | NUR ---
PT LAYING SUPINE IN BED. STATES THAT SHE DOES NOT NEED ANYTHING AT THIS TIME. CALL LIGHT IS WITHIN REACH.
[2021-06-06 16:14] VITALS: BP 122/56; PULSE 103; TEMP 98.1
[2021-06-06 20:55] VITALS: BP 124/60; PULSE 114; TEMP 98.1
--- NOTE | 2021-06-06 21:30 | NUR ---
Initial shift assessment done- has o2 at 3L/nc, SOA on exertion, with any movement starts to cough, states has a headache and would like her long acting Morphine- will give at this time, Alert/oriented x4- understands to call for assistance when needed- denies need for a snack tonight.
[2021-06-07 00:15] VITALS: BP 112/66; PULSE 96; TEMP 97.9
[2021-06-07 04:00] VITALS: BP 106/45; PULSE 84; TEMP 97.7
--- NOTE | 2021-06-07 05:52 | NUR ---
Quiet night-Slept fairly well last night- no requests. VSS , Sat 95-97% on o2 at 3L/nc.
[2021-06-07 08:32] VITALS: BP 105/52; BP 99/52; PULSE 79; TEMP 98
[2021-06-07] MEDS ORDERED: DOXYCYCLINE 10100 MG PO (10:27)
[2021-06-07] MEDS ORDERED: XANAX 0.5MG0.5 MG PO (10:35)
[2021-06-07] MEDS ORDERED: MEDROL 4MG DOSPA4 MG PO (10:35)
[2021-06-07 11:29] VITALS: BP 115/57; PULSE 84; TEMP 98
--- NOTE | 2021-06-07 15:00 | NUR ---
Scheduled medications given. Shift assessment performed. VSS. Patient A&O. Patient given prn pain medication for a headached rated a 6/10. Patient stated that this helped relieve headache. Patient deemed fit for discharge. IV DC'd, catheter intact, no signs of phlebitis. Discharge education/instructions given. All questions answered. Patient escorted from building via wheelchair by [facility] staff. Daughter transporting home.
== END 2021-06-07 14:00 | disposition home or self-care (01) | DRG 189 ==
LOC: COL.ER 19:20 → MEDICAL 20:00
PROVIDERS: Emergency Medicine; Internal Medicine; Student in an Organized Health Care Education/Training Program; ADMIT Student in an Organized Health Care Education/Training Program
DX: J96.21 Acute and chronic respiratory failure with hypoxia (principal); J44.1 Chronic obstructive pulmonary disease with (acute) exacerbation; I10 Essential (primary) hypertension; I27.20 Pulmonary hypertension, unspecified; I65.8 Occlusion and stenosis of other precerebral arteries; M32.9 Systemic lupus erythematosus, unspecified; M79.7 Fibromyalgia; G89.29 Other chronic pain; M54.9 Dorsalgia, unspecified; K21.9 Gastro-esophageal reflux disease without esophagitis; D64.9 Anemia, unspecified; F31.9 Bipolar disorder, unspecified; E87.6 Hypokalemia; M34.9 Systemic sclerosis, unspecified; E11.9 Type 2 diabetes mellitus without complications; Z87.891 Personal history of nicotine dependence; Z88.0 Allergy status to penicillin; Z23 Encounter for immunization
CPT/HCPCS: 99223-AI; 99232-AI; 99233-AI; J0456; J0696; J1650; J1815; J2270; J2405; J2920; J7050; J7512; Q9967

== ENCOUNTER 2021-06-16 17:48 | Emergency (ER) | payer MEDICARE, MEDICAID ==
[~2021-06-16] VITALS: Ht 154.9 cm; Wt 49.5 kg
[~2021-06-16 17:48] MED LIST changes: +ATARAX 25MG25 MG/TAB PO; +MYCOSTATIN100000 U/1 TP; +NYSTATIN OR100 MU/ML PO; +VITAMIN D31000 IU PO; +XANAX 0.5MG0.5 MG PO
[2021-06-16 18:05] VITALS: BP 127/75; TEMP 98.2
[2021-06-16] MEDS ORDERED: WELLBUTRIN XL150 MG PO (18:50)
[2021-06-16 19:10] VITALS: PULSE 96
== END 2021-06-16 19:10 | disposition home or self-care (01) ==
LOC: COL.ER 17:48
DX: R05.9 Cough, unspecified (principal)

== ENCOUNTER 2021-07-14 21:29 | Inpatient (IN) | payer MEDICARE, MEDICAID ==
[~2021-07-14] VITALS: Ht 154.9 cm; Wt 48.1 kg
[~2021-07-14 21:29] MED LIST changes: +WELLBUTRIN XL150 MG PO
[2021-07-14 21:50] LABS: ARTERIAL BLD GAS O2 SATURATION 91.5 % (92-100); ARTERIAL BLD GAS TCO2 CT 26.7; ARTERIAL BLOOD GAS BASE EXCESS 1.9 (-2-2); ARTERIAL BLOOD GAS HCO3 25.6 meq/L (22-26); ARTERIAL BLOOD GAS PCO2 36.6 mmHg (35-45); ARTERIAL BLOOD GAS PO2 60.9 mmHg (80-100); ARTERIAL BLOOD GAS pH 7.46 (7.35-7.45)
[2021-07-14 22:00] LABS: BASO # 0.2 K/mm3 (0.0-0.2); BASO % 1.2 % (0.0-2.0); EOS # 1.1 K/mm3 (0.0-0.7); EOS % 9.3 % (0.0-4.0); GRAN # 8.1 K/mm3 (1.4-6.5); GRAN % 66.6 % (42.2-75.2); HEMOGLOBIN 11.8 g/dl (12.5-16.0); LYMPH # 1.7 K/mm3 (1.2-3.4); MEAN CELL VOLUME 87 fl (80.0-100.0); MEAN CORPUSCULAR HEMOGLOBIN 29 pg (27-31); MEAN CORPUSCULAR HGB CONC 34 g/dl (33.0-37.0); MEAN PLATELET VOLUME 9.4 fl (7.4-10.4); MONO % 8.5 % (1.7-9.3); PLATELET COUNT 207 K/mm3 (130-400); RED BLOOD COUNT 4.02 M/mm3 (4.10-5.30); REDCELL DISTRIBUTION WIDTH-CV 12.7 % (11.5-14.5)
[2021-07-14 22:01] LABS: HEMATOCRIT 34.9 % (37.0-47.0)
[2021-07-14 22:12] LABS: INR 1.6 (0.8-3.0); PROTHROMBIN TIME 17.4 SECONDS (9.7-12.8)
[2021-07-14 22:18] LABS: ALANINE AMINOTRANSFERASE 16 U/L (0-55); ALBUMIN 3.2 gm/dL (3.4-4.8); ALKALINE PHOSPHATASE 98 U/L (40-150); ANION GAP 12 mmol/L (7-16); AST,SGOT 19 U/L (5-34); BILIRUBIN,TOTAL 0.5 mg/dL (0.2-1.2); BLOOD UREA NITROGEN 12 mg/dL (10-20); C-REACTIVE PROTEIN 15.08 mg/dL (0.00-0.50); CALCIUM 9.2 mg/dL (8.4-10.2); CARBON DIOXIDE 27 mmol/L (23-31); CHLORIDE 96 mmol/L (98-107); GLUCOSE 149 mg/dL (70-99); POTASSIUM 3.2 mmol/L (3.5-4.5); SODIUM 135 mmol/L (136-145)
[2021-07-14 22:25] LABS: TROPONIN-I < 0.010 ng/mL (0.00-0.033)
[2021-07-14 22:48] LABS: COLLECTION METHOD CATHETER
[2021-07-14 22:56] LABS: PH 6 (5-8); SQUAMOUS EPITHELIAL None Seen /hpf (0-10); URINE APPEARANCE Clear (CLEAR/HAZY); URINE BACTERIA None Seen /hpf (NONE SEEN); URINE BILIRUBIN Negative (NEGATIVE); URINE BLOOD Negative (NEGATIVE); URINE COLOR Yellow (YELLOW); URINE GLUCOSE Negative (NEGATIVE); URINE KETONE Trace (NEGATIVE); URINE LEUKOCYTE ESTERASE Negative (NEGATIVE); URINE NITRATE Negative (NEGATIVE); URINE PROTEIN(semi-quant) Negative (NEGATIVE); URINE RBC 0-2 /hpf (0-2); URINE UROBILINOGEN Negative (NEGATIVE)
--- NOTE | 2021-07-14 23:48 | NUR ---
Received report from ED nurseSandrita.
[2021-07-15] VITALS (466 sets, daily range): BP systolic 89–124; BP diastolic 51–72; PULSE 81–106; TEMP 97.6–98.5; O2SAT 92–100
--- NOTE | 2021-07-15 00:03 | NUR ---
Patient arrives to ICU room 8 via ED stretcher. She is transferred to ICU bed via draw sheet. She arrives receiving 5L oxygen via nasal cannula, tolerating well. Initial BP of 89/69, all other vitals within normal limits. BP rechecked after 10 minutes with result of 109/70. Patient is drowsy, although alert and oriented. She reports dull pain in her hips from prior falls rated as 5-6/10. No IV fluids or medications infusing upon arrival. Patient has a single 20G peripheral IV to the LAC.
--- NOTE | 2021-07-15 01:00 | NUR ---
Patient's belongings include clothing and a cell phone. She denies having glasses, dentures, hearing aids, or removable jewelry on her person at this time. Denies having brought a purse or wallet with her.
--- NOTE | 2021-07-15 14:17 | NUR ---
PT ARRIVED TO FLOOR, RATES PAIN IN SHOULDER AND HIP 10/06, MORHPINE GIVEN, ASSESSMENT PERFORMED, WATER PROVIDED, CALL LIGHT WITHIN REACH, NO OTHER NEEDS AT THIS TIME
--- NOTE | 2021-07-15 15:17 | NUR ---
SW met with patient to discuss discharge plan. Patient's sister Ana present at bedside. Patient currently lives at home with her daughter Chica ([phone]) in [place]. Patient states that she is independent with her ADL's and utlizes both a cane and walker at home to assist with ambulation. Patient is on 2L baseline of oxygen at home manage through [employer]. PCP is Dr. Toledo and she utlizes [facility] in [place] for medications. Patient has a DPOA-HC established listing her daughter Chica as her agent. A copy can be found in the patient's EMR. Patient admits to having multiple falls at home and feels like it is medication driven. Does also report an increase in weakness as well. Discharge plan: Home * pending PT/OT rec's*
--- NOTE | 2021-07-15 17:08 | NUR ---
UNABLE TO CONFIRM MEDICATIONS WITH PT PT DOES NOT KNOW WHAT MEDICATIONS SHE TAKES, PT REPORTS NOT CHECKING HER BS AT HOME, EDUCATED ON HER ON IMPORTANCE OF THIS. PT REPORTS PAIN 2/10 AFTER MORPHINE GIVEN, PT INDEPENDENT IN ORDERING MEALS, PT SISTER AT BEDSIDE, VITALS TAKEN AND STABLE, SIMON EMPTIED, NO OTHER NEEDS
--- NOTE | 2021-07-15 18:45 | NUR ---
Bedside shift report received, assumed care for mini shifter.
[2021-07-15 18:59] LABS: BASO % 0.2 % (0.0-2.0); EOS % 0.1 % (0.0-4.0); GRAN # 9.7 K/mm3 (1.4-6.5); GRAN % 89.9 % (42.2-75.2); HEMOGLOBIN 10.6 g/dl (12.5-16.0); LYMPH # 0.7 K/mm3 (1.2-3.4); LYMPH % 6.3 % (20.0-51.0); MEAN CELL VOLUME 87 fl (80.0-100.0); MEAN CORPUSCULAR HEMOGLOBIN 29 pg (27-31); MEAN CORPUSCULAR HGB CONC 34 g/dl (33.0-37.0); MEAN PLATELET VOLUME 9.9 fl (7.4-10.4); MONO # 0.3 K/mm3 (0.1-0.6); MONO % 2.9 % (1.7-9.3); PLATELET COUNT 193 K/mm3 (130-400); RED BLOOD COUNT 3.61 M/mm3 (4.10-5.30); REDCELL DISTRIBUTION WIDTH-CV 12.5 % (11.5-14.5)
[2021-07-15 19:00] LABS: HEMATOCRIT 31.5 % (37.0-47.0)
[2021-07-15 19:09] LABS: CALCIUM 9.1 mg/dL (8.4-10.2); CREATININE, serum 0.72 mg/dL (0.57-1.11); POTASSIUM 3.8 mmol/L (3.5-4.5)
--- NOTE | 2021-07-15 19:30 | NUR ---
Assessment complete. A&Ox3. Denies nausea. Short of breath at rest. C/O pain to back-rating pain 4/10 pain scale-denies need for inervention. IV to left AC infiltrated and leaking. DCd at this time cath intact. Restarted in right [id number] attempt. TELE reports SR. O2@3L/NC-baseline. Schultz cath with clear yellow urine. Plan of care discussed for this shift to include meds/calling for questions/concerns. Verbalizes understanding. Call light in reach. Will monitor.
[2021-07-16 03:11] VITALS: BP 120/61; PULSE 93; TEMP 97.4
--- NOTE | 2021-07-16 05:05 | NUR ---
Patient had an uneventful night. Denied nausea. Currently on O2@3L/NC which is baseline. TELE reporting NSR. C/O pain to back/kouq-ortmajw-nrnpsrans morphine PRN. Schultz cath with clear yellow urine. NS@75ml/hr to left FA. Denies current needs. Call light in reach. Will monitor.
[2021-07-16 08:00] VITALS: BP 129/60; PULSE 101; TEMP 97.5
--- NOTE | 2021-07-16 10:29 | NUR ---
PT UP TO BR AFTER EATING BREAKFAST. MED BM, RETURNED TO BED WITH VERY SLOW GAIT. AM MEDS GIVEN ORDERED. PT REQUESTING INCREASE TO HOME DOSE OF MSO4. WILL CONTACT PROVIDER FOR CLARIFICATION. IV TO LFA.
[2021-07-16 11:38] VITALS: BP 130/67; PULSE 119; TEMP 98
--- NOTE | 2021-07-16 13:16 | NUR ---
SW met with patient to follow up on PT recommendation of of post acute rehab. Spoke with the patient on her options of IPR vs. a SNF. Patient verbalizes that she would prefer to go to IPR. Stressed to the patient that it would require her to do 3 hours of therapy a day and that at this time she is pretty weak. Patient continues to be adamant about IPR stating that she want's to get back to her dog quickly, which could be a motivator for her. Patient is ok with SNF referrals being sent to [facility] and [facility] for care. Informaed her that this is less intense and that she would be staying at the facility. She voices that she is less excited about this option but is agreeable to go if I[facility] cannot accept. Referrals made to [facility], [facility] and [facility] Discharge plan: IPR vs. SNF ( 1. preference would be IPR, 2. preference SNF)
[2021-07-16 15:29] VITALS: BP 133/61; PULSE 110; TEMP 98.1
--- NOTE | 2021-07-16 20:00 | NUR ---
PT RESTING IN BED. ALITTLE LABORED BREATHING. O2 AT 5L NC. SPEAK IN DIFFERENT LANGUAGE BUT CAN SPEAK VIETNAMESE TOO. SEE MAR FOR MS GIVEN FOR GENERALIZED PAIN. CALL LIGHT IN REACH. BED ALARM SET.
[2021-07-16 20:27] VITALS: BP 144/66; PULSE 119; TEMP 98.3
[2021-07-17 00:30] VITALS: BP 136/59; PULSE 98; TEMP 98.1
[2021-07-17 03:47] VITALS: BP 126/57; PULSE 77; TEMP 97.7
--- NOTE | 2021-07-17 04:12 | NUR ---
Pt refused tx at this time. Pt stated "No, no, no. I'm too tired right now."
[2021-07-17 05:38] LABS: BASO % 0.1 % (0.0-2.0); GRAN # 6.6 K/mm3 (1.4-6.5); GRAN % 84.4 % (42.2-75.2); LYMPH # 0.9 K/mm3 (1.2-3.4); LYMPH % 11.5 % (20.0-51.0); MEAN CELL VOLUME 88 fl (80.0-100.0); MEAN CORPUSCULAR HGB CONC 33 g/dl (33.0-37.0); MEAN PLATELET VOLUME 10.1 fl (7.4-10.4); MONO # 0.2 K/mm3 (0.1-0.6); MONO % 3.1 % (1.7-9.3); PLATELET COUNT 182 K/mm3 (130-400); REDCELL DISTRIBUTION WIDTH-CV 13.1 % (11.5-14.5)
[2021-07-17 05:46] LABS: HEMATOCRIT 28.9 % (37.0-47.0); HEMOGLOBIN 9.6 g/dl (12.5-16.0); MEAN CORPUSCULAR HEMOGLOBIN 29 pg (27-31)
[2021-07-17 05:49] LABS: CREATININE, serum 0.64 mg/dL (0.57-1.11); POTASSIUM 3.6 mmol/L (3.5-4.5)
[2021-07-17 07:06] VITALS: BP 132/65; PULSE 85; TEMP 97.9
--- NOTE | 2021-07-17 09:00 | NUR ---
Assessment completed, alert/oriented, vital signs stable, she reports feeling better overall, she is on 3L. o2 and this is baseline for her, breathing labored while at rest/ tachypnic shallow respirations, lungs diminished throughout, continue with IV steroids and abx, at edge of bed eating breakfast and denies other needs at this time
[2021-07-17 11:15] VITALS: BP 121/68; PULSE 59; TEMP 97.4
--- NOTE | 2021-07-17 11:24 | NUR ---
BLAYNE attended clinical rounds. The clinical team would be ready to discharge the patient, once placement is found and insurance has authorized a stay. Lori, [facility] Director, notified BLAYNE that she has submitted for auth. Awaiting insurance. BLAYNE notified and faxed updates to [facility]. Awaiting their screens. BLAYNE also faxed the patient's information to [facility] for auth on SNF, in the event insurance does not approve IPR. BLAYNE attempted to contact and update the patient's daughter, Chica. BLAYNE left her a voicemail.
--- NOTE | 2021-07-17 11:42 | NUR ---
Leonila, at [facility], reports that they are able to accept the patient for a skilled stay. Elie, at [facility], reports that they can accept the patient; pending insurance auth and figuring out bed availability. If Susie denies SNF, they can look at a LTC bed for her instead.
[2021-07-17 15:33] VITALS: BP 127/64; PULSE 109; TEMP 98.2
--- NOTE | 2021-07-17 15:48 | NUR ---
The patient's sister, Ana (ph#[phone]), arrived to the hospital. BLAYNE updated her on the referrals and how we are waiting on insurance. Armando verbalized understanding and is in agreement to the plan. Ana states that the patient's daughter, Chica, is out of town on vacation, so is not reachable. BLAYNE student followed up with the patient. The patient wouuld prefer [facility], if [facility] cannot take. BLAYNE received a voicemail from Criss at [facility]. She reports that they have approved SNF for three days, from 07/17-07/19. Auth ID#[id number], Reference#[id number]. BLAYNE notified Elie at [facility] and provided them with the auth information. Elie states that they can take the patient tomorrow, 07/18. BLAYNE updated the patient. She is in agreement to the plan. *Discharge plan: [facility] SNF*
--- NOTE | 2021-07-17 19:07 | NUR ---
Tx given via mask, tolerated well. Pulmicort and Perforomist given seperate from Duoneb. Pt educated on pursed lip breathing and encouraged to try it whenever she is short of breath but also on a regular basis to help with everyday SOB.
[2021-07-17 21:09] VITALS: BP 142/76; BP 142/84; PULSE 123; PULSE 91; TEMP 98; TEMP 98.2
--- NOTE | 2021-07-17 23:24 | NUR ---
Report received from ALLISON Fuchs. Patient is pleasant and A&Ox3. Patient is here due to an exacerbation of COPD and PNA. Full body assessment completed and vital signs are WNL. Medication administered without difficulty. Per report patient is to d/c to [facility] on 07/18/21. Patient has no complaints of pain at this time and expresses no other needs. Call light within reach.
[2021-07-18 00:18] VITALS: BP 134/74; PULSE 71; TEMP 98.9
[2021-07-18 04:00] VITALS: BP 133/72; PULSE 107
[2021-07-18 06:53] LABS: CALCIUM 9.3 mg/dL (8.4-10.2); CREATININE, serum 0.67 mg/dL (0.57-1.11)
[2021-07-18 06:56] LABS: POTASSIUM 2.9 mmol/L (3.5-4.5)
--- NOTE | 2021-07-18 06:56 | NUR ---
Lab called with critical lab of potassium, 2.9
[2021-07-18 07:30] VITALS: BP 151/83; PULSE 98; TEMP 97.9
[2021-07-18 07:38] LABS: BASO % 0.1 % (0.0-2.0); EOS % 0.4 % (0.0-4.0); GRAN # 6.8 K/mm3 (1.4-6.5); GRAN % 62.4 % (42.2-75.2); LYMPH # 2.8 K/mm3 (1.2-3.4); MEAN CELL VOLUME 88 fl (80.0-100.0); MEAN CORPUSCULAR HGB CONC 33 g/dl (33.0-37.0); MEAN PLATELET VOLUME 9.8 fl (7.4-10.4); MONO # 1.1 K/mm3 (0.1-0.6); MONO % 9.8 % (1.7-9.3); PLATELET COUNT 205 K/mm3 (130-400); RED BLOOD COUNT 4.05 M/mm3 (4.10-5.30); REDCELL DISTRIBUTION WIDTH-CV 13.2 % (11.5-14.5)
[2021-07-18 08:01] LABS: HEMATOCRIT 35.7 % (37.0-47.0); HEMOGLOBIN 11.9 g/dl (12.5-16.0); MEAN CORPUSCULAR HEMOGLOBIN 29 pg (27-31)
[2021-07-18 11:05] VITALS: BP 127/71; PULSE 82; TEMP 97.9
--- NOTE | 2021-07-18 11:05 | NUR ---
Lori, with I[facility], states that insurance denied IPR.
[2021-07-18] MEDS ORDERED: PREDNISONE20 MG PO (12:36)
--- NOTE | 2021-07-18 13:31 | NUR ---
The PERSONAL LINES INSURANCE AGENT notified BLAYNE that the patient would like to speak to BLAYNE this morning. BLAYNE and BLAYNE student met with the patient and reviewed the plan for [facility] SNF today. The patient states that she does not want to go to rehab now. She states that she is having breathing and anxiety issues that she would like to get figured out at home. BLAYNE discussed how that these issues are concerning for the patient to return home with and how SNF can help manage them and monitor her. The patient still refused. BLAYNE updated the hospitalist and clinical team of the above. BLAYNE then attended clinical rounds. The hospitalist discussed the recommendation of SNF and how the team would be concerned if she returned home with her concerns for her breathing and anxiety. The team also discussed how insurance had approved her SNF stay. The patient declines rehab and states that her son is now in town and she wants to go home to see him. The team discussed how her son can visit her at [facility]. The patient still declined. She states that she is returning home with her daughter. When her daughter is not home, she states that her sister comes over and stays with her. The patient is open to home health from [facility]. BLAYNE presented and read the IM form outloud to the patient. The patient verbalized understanding and signed the form. BLAYNE student provided her with a copy. BLAYNE contacted and faxed a referral to Bianca at [facility]. Bianca is checking into the patient's [employer]. BLAYNE attempted to contact the patient's daughter, Chica. BLAYNE left her a voicemail. BLAYNE updated the patient's sister, Ana. Ana knows that the patient wants to return home and states she will be at the hospital soon to take the patient home. BLAYNE updated Elie at [facility].
--- NOTE | 2021-07-18 14:00 | NUR ---
IV REMOVED, CATHETER INTACT. SIMON CATHETER REMOVED, 400 ML YELLOW URINE IN DRAINAGE BAG. DISCHARGE PAPERWORK REWVIEWED AND PATIENT VERBALIZED UNDERSTANDING. PATIENT ASSISTED WITH CHANGING CLOTHING IN PREPARATION FOR DISCHARGE. PATIENT LOADED INTO WHEELCHAIR AND TAKEN OUT TO CAR WITH SISTER FOR DEPARTURE BY AIDE.
--- NOTE | 2021-07-18 14:26 | NUR ---
Bianca, at [facility], reports that they are able to accept the patient. SW updated the patient's sister, Ana. The patient is to discharge back home with her daughter today, 07/18, with home health services for correction/PT/OT from [facility]. BLAYNE notified and faxed orders to Bianca at [facility]. No additional needs at this time.
== END 2021-07-18 14:20 | disposition home health service (06) | DRG 189 ==
LOC: COL.ER 21:29 → ICU 23:11 → SURG 23:11
PROVIDERS: Emergency Medicine; Physician Assistant; Student in an Organized Health Care Education/Training Program; ADMIT Internal Medicine
DX: J96.21 Acute and chronic respiratory failure with hypoxia (principal); J44.1 Chronic obstructive pulmonary disease with (acute) exacerbation; I10 Essential (primary) hypertension; I27.20 Pulmonary hypertension, unspecified; I73.00 Raynaud's syndrome without gangrene; M32.9 Systemic lupus erythematosus, unspecified; M79.7 Fibromyalgia; G89.29 Other chronic pain; M54.9 Dorsalgia, unspecified; K21.9 Gastro-esophageal reflux disease without esophagitis; D64.9 Anemia, unspecified; E11.9 Type 2 diabetes mellitus without complications; F31.9 Bipolar disorder, unspecified; F41.9 Anxiety disorder, unspecified; E87.6 Hypokalemia; E86.0 Dehydration; M25.552 Pain in left hip; Z87.891 Personal history of nicotine dependence; Z88.0 Allergy status to penicillin; Z20.822 Contact with and (suspected) exposure to COVID-19
CPT/HCPCS: 99223-AI; 99232-AI; 99233-AI; 99239; J0696; J1650; J1815; J1885; J2920; J2930; J3475; J3480; J7030; J7512

== ENCOUNTER → 2021-08-21 | Outpatient (CLI) | payer MEDICARE, MEDICAID ==
[2021-08-21 08:46] LABS: CALCIUM 9.7 mg/dL (8.4-10.2); CREATININE, serum 0.76 mg/dL (0.57-1.11); POTASSIUM 3.8 mmol/L (3.5-4.5)
== END ==
LOC: COL.LAB 08:13 → COL.RAD 08:30
PROVIDERS: Internal Medicine Adult Congenital Heart Disease
DX: H93.A9 Pulsatile tinnitus, unspecified ear (principal)
CPT/HCPCS: Q9967

== ENCOUNTER → 2021-10-16 | Outpatient (CLI) | payer MEDICARE, MEDICAID | LOC: COL.RAD 09:45 | DX: N28.1 Cyst of kidney, acquired (principal) ==

== ENCOUNTER 2023-07-18 14:22 | Emergency (ER) | payer MEDICARE, MEDICAID ==
[~2023-07-18] VITALS: Ht 154.9 cm; Wt 48.6 kg
[2023-07-18 16:05] VITALS: BP 137/79; PULSE 93; TEMP 98
== END 2023-07-18 16:05 | disposition home or self-care (01) ==
LOC: COL.ER 14:22
DX: S51.811A Laceration without foreign body of right forearm, initial encounter (principal); J44.9 Chronic obstructive pulmonary disease, unspecified; Z87.891 Personal history of nicotine dependence; Z23 Encounter for immunization; W11.XXXA Fall on and from ladder, initial encounter; W22.03XA Walked into furniture, initial encounter

== ENCOUNTER 2023-11-05 22:14 | Observation (INO) | payer MEDICARE, MEDICAID ==
[~2023-11-05] VITALS: Ht 154.9 cm; Wt 49.8 kg
[~2023-11-05 22:14] MED LIST changes: +K-DUR 10 MEQ T10 MEQ PO; -K-DUR20 MEQ PO
[2023-11-05] MEDS ORDERED: NS 1,000 ML IV ONE (22:30)
[2023-11-05] MEDS ORDERED: Albuterol/Ipratropium 3 MG-0.5 MG/3 ML Neb Soln IH ONE (22:30)
[2023-11-05 22:36] LABS: HEMATOCRIT 40.3 % (37.0-47.0); HEMOGLOBIN 12.5 g/dl (12.5-16.0); MEAN CELL VOLUME 85 fl (80.0-100.0); MEAN CORPUSCULAR HEMOGLOBIN 26 pg (27-31); MEAN CORPUSCULAR HGB CONC 31 g/dl (33.0-37.0); PLATELET COUNT 166 K/mm3 (130-400); RED BLOOD COUNT 4.76 M/mm3 (4.10-5.30)
[2023-11-05 22:47] LABS: ALBUMIN 3.7 g/dL (3.4-4.8); BILIRUBIN,TOTAL 0.3 mg/dL (0.2-1.2); C-REACTIVE PROTEIN 3.96 mg/dL (0.00-0.50); CREATININE, serum 0.75 mg/dL (0.57-1.11); POTASSIUM 4.1 mEq/L (3.5-4.5); TOTAL PROTEIN 8.4 g/dl (6.2-8.1)
[2023-11-05 22:53] LABS: ARTERIAL BLD GAS O2 SATURATION 96.1 % (92-100); ARTERIAL BLD GAS TCO2 CT 25.7; ARTERIAL BLOOD GAS BASE EXCESS -0.2 (-2-2); ARTERIAL BLOOD GAS HCO3 24.4 meq/L (22-26); ARTERIAL BLOOD GAS PCO2 39.9 mmHg (35-45); ARTERIAL BLOOD GAS PO2 82.1 mmHg (80-100); ARTERIAL BLOOD GAS pH 7.41 (7.35-7.45)
[2023-11-05 23:01] LABS: BASOPHIL 2 % (0-2); EOSINOPHIL 38 % (0-4); LYMPHOCYTE 16 % (20.0-51.0); NEUTROPHILS 40 % (42.0-75.2)
[2023-11-05] MEDS ORDERED: Doxycycline Monohydrate 100 MG CAP PO ONE (23:15)
[2023-11-05] MEDS ORDERED: REMERON 15M15 MG/TA1 PO (23:22)
[2023-11-05] MEDS ORDERED: NAMENDA5 MG PO (23:23)
[2023-11-05] MEDS ORDERED: ZOLOFT 100MG100 MG PO (23:25)
[2023-11-05] MEDS ORDERED: SPIRIVA RE2.5 MCG/Ac PO (23:27)
[2023-11-05] MEDS ORDERED: MELATONIN ER10 MG PO (23:29)
[2023-11-05] MEDS ORDERED: RT ADVAIR HFA 2312 G IH (23:54)
[2023-11-05] MEDS ORDERED: MS CONTIN 115 MG/TAB PO (23:54)
[2023-11-06] VITALS (12 sets, daily range): BP systolic 109–172; BP diastolic 58–84; PULSE 79–116; TEMP 97.7–99.8
[2023-11-06] MEDS ORDERED: ANTI-DIARRHEAL2 MG PO (00:04)
[2023-11-06] MEDS ORDERED: Montelukast 10 MG TAB PO SCH (00:05)
[2023-11-06] MEDS ORDERED: Mirtazapine 15 MG TAB PO SCH (00:07)
[2023-11-06] MEDS ORDERED: Melatonin 3 MG TAB PO SCH (00:07)
[2023-11-06] MEDS ORDERED: Sertraline 100 MG,Sertraline 50 MG PO SCH (00:08)
[2023-11-06] MEDS ORDERED: SPIRIVA RE2.5 MCG/Ac IH (00:12)
[2023-11-06] MEDS ORDERED: Fluticasone Nasal 50 MCG/Spray 16 GM BOTTLE NS SCH (00:13)
[2023-11-06] MEDS ORDERED: Nystatin 100,000 Units/GM Ointment 15 GM TUBE TP PRN (00:15)
[2023-11-06] MEDS ORDERED: NS 1,000 ML IV SCH ×2 (00:30→00:45)
--- NOTE | 2023-11-06 00:40 | NUR ---
PATIENT ARRIVED TO ROOM VIA BED FROM EMERGENCY DEPARTMENT, SHE WAS ABLE TO AMBULATE ON HER OWN WITHOUT ASISTIVE DEVICES TO BED IN ROOM 310. SHE IS REQUESTING TO HAVE A CANE OR WALKER AT BEDSIDE SHE DOES USE A WALKER AT HOME PERIODICALLY. SHE IS CURRENTLY ON 3L O2 VIA NASAL CANNULA, WHICH IS HER BASELINE. EDUCATED DERMATOLOGY SALES REPRESENTATIVE LIGHT USE AND ENSURED LIGHT WAS WITHIN REACH. THE BED IS LOCKED AND IN LOW POSITION. SHE IS ALERT AND ORIENTED AT THIS TIME. STATES HER SHORTNESS OF BREATH IS FEELING BETTER THAN HOW SHE WAS FEELING PRIOR TO COMING TO THE ED.
[2023-11-06] MEDS ORDERED: Ondansetron 4 MG/2 ML VIAL IV PRN (00:45)
[2023-11-06] MEDS ORDERED: Acetaminophen 325 MG TAB PO PRN (00:45)
[2023-11-06] MEDS ORDERED: Albuterol/Ipratropium 3 MG-0.5 MG/3 ML Neb Soln IH PRN ×2 (01:00→23:45)
[2023-11-06] MEDS ORDERED: Dextrose (Glucose) 15 GM (4 x 3.75 GM) Chewable TABLET PACK PO PRN (01:30)
[2023-11-06] MEDS ORDERED: Glucagon 1 MG VIAL IM PRN (01:30)
[2023-11-06] MEDS ORDERED: Dextrose 50% Water 25 GM/50 ML SYRINGE IV PRN (01:30)
[2023-11-06] MEDS ORDERED: Albuterol/Ipratropium 3 MG-0.5 MG/3 ML Neb Soln IH SCH (02:00)
[2023-11-06] MEDS ORDERED: Sucralfate 1 G TAB PO SCH (07:00)
[2023-11-06] MEDS ORDERED: Formoterol 20 MCG,Budesonide 0.5 MG IH SCH (07:00)
[2023-11-06] MEDS ORDERED: Insulin Lispro (HumaLOG) SQ SCH (08:00)
--- NOTE | 2023-11-06 08:30 | NUR ---
patient A&O X4. patient reports generalized pain and slight headache rating the pain 4/10. denies soa, chest pain. patient on 1l of oxygen via nasal cannula. patient laying in bed constantly drowsy but reponds when spoken to. Patient shift assessment completed. patient call light within reach. bed at lowest position. bed alarm on.
[2023-11-06] MEDS ORDERED: amLODIPine 5 MG TAB PO SCH (09:00)
[2023-11-06] MEDS ORDERED: Pantoprazole 40 MG in NS 10 ML IV SCH (09:00)
[2023-11-06] MEDS ORDERED: dexAMETHasone 10 MG/ML VIAL IV SCH (09:00)
[2023-11-06] MEDS ORDERED: Memantine 5 MG TAB PO SCH (09:00)
[2023-11-06] MEDS ORDERED: Doxycycline Monohydrate 100 MG CAP PO SCH (09:00)
[2023-11-06] MEDS ORDERED: Multivitamin TAB PO SCH (12:00)
[2023-11-06] MEDS ORDERED: Calcium Carb/Vit D3 500 mg-200 Units TAB PO SCH (12:00)
[2023-11-06] MEDS ORDERED: Morphine Sulfate 15 MG Immediate-Release TAB PO SCH (12:30)
--- NOTE | 2023-11-06 12:56 | NUR ---
Inspector Salvage met with patient to discuss discharge planning. Patient lives in [place] with her daughter, Chica (ph#[phone]) [address] Dr. Toledo for primary care. Patient gets her medications from [facility] pharmacy. When asked about transportation, patient stated either she or her daughterChica drives to appointments. Patient has both a cane and walker available at home. Patient stated her daughter, Chica assists her with ADLS as needed and she also has in home services from [facility]. Patient has DPOA-HC in EMR designating her daughter, Chica. Patient plans to return home at time of discharge. Patient is currently on oxygen, however does not wear it at baseline. SW contacted patient's daughter, Chica to review discharge plan. Chica confirmed patient has services from [facility] and does not have any skilled HH services at this time. Discharge Plan: Home with daughter
[2023-11-06] MEDS ORDERED: MS CONTIN 115 MG/TAB PO (15:22)
[2023-11-06] MEDS ORDERED: MYCOGEN CR 30GM TP (15:30)
[2023-11-06] MEDS ORDERED: Benzonatate 100 MG CAP PO ONE (17:45)
--- NOTE | 2023-11-06 21:02 | NUR ---
PATIENT IS RESTING IN BED WATCHING TV. REPORTING SOME PAIN IN HER LEGS AND ARMS WHICH SHE REPORTS 4/10. CONTINUES TO HAVE SHORTNESS OF BREATH BUT REPORTS IT HAS IMPROVED FROM WHEN SHE WAS ADMITTED. DENIES ANY CHEST PAIN OR NAUSEA. CALL LIGHT IS WITHIN REACH. BED IS LOCKED AND IN LOW POSITION.
[2023-11-07 00:11] VITALS: BP 124/72; PULSE 97; TEMP 98
[2023-11-07] MEDS ORDERED: Benzonatate 100 MG CAP PO PRN (00:30)
[2023-11-07 01:17] VITALS: BP_SYST 124
[2023-11-07 04:06] VITALS: BP 121/70; PULSE 90; TEMP 98.8
[2023-11-07 04:23] VITALS: BP_SYST 121
[2023-11-07 06:32] LABS: BASO % 0.7 % (0.0-2.0); EOS # 0.9 K/mm3 (0.0-0.7); EOS % 14.6 % (0.0-4.0); GRAN # 3.1 K/mm3 (1.4-6.5); GRAN % 50.5 % (42.2-75.2); HEMOGLOBIN 10.8 g/dl (12.5-16.0); LYMPH # 1.7 K/mm3 (1.2-3.4); LYMPH % 27.5 % (20.0-51.0); MEAN CELL VOLUME 86 fl (80.0-100.0); MEAN CORPUSCULAR HEMOGLOBIN 26 pg (27-31); MEAN CORPUSCULAR HGB CONC 31 g/dl (33.0-37.0); MEAN PLATELET VOLUME 10.4 fl (7.4-10.4); MONO # 0.4 K/mm3 (0.1-0.6); MONO % 6.4 % (1.7-9.3); PLATELET COUNT 146 K/mm3 (130-400); RED BLOOD COUNT 4.09 M/mm3 (4.10-5.30); REDCELL DISTRIBUTION WIDTH-CV 14.2 % (11.5-14.5)
[2023-11-07 06:35] LABS: HEMATOCRIT 35.2 % (37.0-47.0)
[2023-11-07 06:46] LABS: CALCIUM 10.1 mg/dL (8.4-10.2); CREATININE, serum 0.71 mg/dL (0.57-1.11); POTASSIUM 3.8 mEq/L (3.5-4.5)
[2023-11-07 07:16] VITALS: BP 112/64; PULSE 86; TEMP 97.7
--- NOTE | 2023-11-07 08:45 | NUR ---
Pt. resting in bed upon entry. Administered scheduled meds per JUN. Pt. requested medication for cough. Administered PRN tesslon perles per JUN. Performed shift assessment. Noted diminished inspiratory and expiratory wheezes to BONG upper lobes upon ausculation of lungs. Lung sounds were diminished at BONG bases. Pt. is coughing throughout assessment. Cough is dry and unproductive. Pt. is to discharge today per hospitalist and requested home rx for cough suppressant. Hospitalist made aware, but no new orders were made. Pt. educated, per Dr. Haywood, that she does not want to supress pt.'s cough at this time d/t dx of COPD as it is good for her to expell sputum to encourage healing. All other assessment findings WNL. Pt. reports pain has decreased from 4/10 to 3/10. No complaints or further request at this time. Call light in reach.
[2023-11-07 09:00] VITALS: BP_SYST 112
[2023-11-07] MEDS ORDERED: DECADRON6 MG PO (09:08)
[2023-11-07] MEDS ORDERED: OXYGEN NASAL.CANN (09:09)
[2023-11-07] MEDS ORDERED: DOXYCYCLINE HY100 MG PO (09:10)
--- NOTE | 2023-11-07 10:15 | NUR ---
Reviewed discharge instructions w/ pt. Pt. verbalized understanding. Discontinued INT from L wrist and R forearm. Both catheter tips intact. Pt. discharged on baseline 3 L O2. Accompanied to POV via wheelchair w/ ALLISON Mukherjee. Was met by pt.'s daughter, Edie, who supplied pt. w/ home O2.
--- NOTE | 2023-11-07 13:45 | NUR ---
Plaster Molder was called into patient's room to assist with setting up Medicaid transportation. After ride was scheduled, SW inquired about oxygen as patient is currently requiring it. Patient advised she has oxygen at home that she wears mostly at night, but during the day as needed. Patient stated her provider is [facility] and she does not have a portable with her. SW contacted patient's daughter, Chica who advised she will pick patient up with the oxygen and take her home. SW contacted Medicaid transportation to cancel ride. SW spoke with patient and daughter about Home Health services and they advised she has had [facility] in the past and would like to use them again. SW contacted Yariel at [facility] and faxed referral with discharge orders. Discharge Plan: Home with [facility]
== END 2023-11-07 10:15 | disposition home or self-care (01) ==
LOC: COL.ER 22:14 → MEDICAL 11-06 00:08
PROVIDERS: Emergency Medicine; Nurse Practitioner Family; ADMIT Internal Medicine
DX: J44.1 Chronic obstructive pulmonary disease with (acute) exacerbation (principal); R65.10 Systemic inflammatory response syndrome (SIRS) of non-infectious origin without acute organ dysfunction; J96.21 Acute and chronic respiratory failure with hypoxia; I10 Essential (primary) hypertension; I27.20 Pulmonary hypertension, unspecified; E11.9 Type 2 diabetes mellitus without complications; M32.9 Systemic lupus erythematosus, unspecified; I73.00 Raynaud's syndrome without gangrene; K21.9 Gastro-esophageal reflux disease without esophagitis; F32.A Depression, unspecified; F41.9 Anxiety disorder, unspecified; G89.29 Other chronic pain; Z87.19 Personal history of other diseases of the digestive system; Z79.899 Other long term (current) drug therapy; Z79.51 Long term (current) use of inhaled steroids; Z87.891 Personal history of nicotine dependence; Z86.79 Personal history of other diseases of the circulatory system
CPT/HCPCS: G0378; J1100; J1650; J1815; J7030